=== PATIENT | male | born 1935 | race Caucasian/White ===

== ENCOUNTER 2017-01-02 13:07 | Inpatient (IN) ==
[2017-01-02 13:55] LABS: Basophils % 0.5 %; Eosinophils # 0.1 K/mcL (0.0-0.6); Eosinophils % 1.3 %; Hematocrit 44.8 % (37.5-50.1); Hemoglobin 14.9 g/dL (12.9-16.9); Immature Granulocytes % 0.4 % (0-4); Lymphocytes # 2.1 K/mcL (0.6-4.6); Lymphocytes % 25.2 %; Mean Corpuscular HGB Conc 33.3 g/dL (31.6-35.5); Mean Corpuscular Hemoglobin 28.7 pg (28.0-33.3); Mean Corpuscular Volume 86.3 fL (83.0-100.0); Mean Platelet Volume 10.7 fL (9.4-12.4); Monocytes # 0.8 K/mcL (0.0-1.3); Monocytes % 9.3 %; Neutrophils # 5.2 K/mcL (1.6-8.9); Platelet Count 306 K/mcL (140-400); Red Blood Count 5.19 M/mcL (4.19-5.50); Red Cell Distribution Width 14.2 % (11.5-14.5); Segmented Neutrophils % 63.3 %
[2017-01-02 14:00] LABS: INR 1.1; Prothrombin Time 11.4 Seconds (9.4-12.1)
[2017-01-02 14:02] LABS: Activated Partial Thrombo Time 36.4 Seconds (26.0-36.0)
[2017-01-02 14:07] LABS: BUN/Creatinine Ratio 17 (6-26); Blood Urea Nitrogen 13 mg/dL (8-26); Carbon Dioxide 23 mEq/L (19-29); Chloride 104 mEq/L (98-109); Glucose 130 mg/dL (70-99); Osmolality,Calculated 290 (280-300); Potassium 3.5 mEq/L (3.5-4.5); Sodium 139 mEq/L (136-145); eGFR For African Americans > 60 (> 60); eGFR For Non-African Americans > 60 (> 60)
--- NOTE | 2017-01-02 14:10 | Emergency Department Note ---
Disposition Clinical Impression: Syncope Disposition: Admitted As Inpatient Condition: Good General Adult HPI - General Chief complaint: ED Syncope Stated complaint: syncope, a-fib Time Seen by Provider: 01/02/17 13:37 Source: patient, family Limitations: no limitations Nursing Notes Reviewed: Yes Vital Signs Reviewed: Yes - History of Present Illness Pain Scale: 0 - Related Data Home Medications Medication Instructions Recorded Confirmed Amlodipine Besylate 10 mg PO DAILY 01/02/17 01/02/17 Aspirin Enteric Coated [Aspirin EC] 81 mg PO DAILY 01/02/17 01/02/17 Esomeprazole Magnesium [Nexium] 20 mg PO DAILY 01/02/17 01/02/17 Furosemide [Lasix] 20 mg PO 2XW 01/02/17 01/02/17 Gabapentin [Neurontin] 600 mg PO HS 01/02/17 01/02/17 Gemfibrozil [Lopid] 600 mg PO DAILY 01/02/17 01/02/17 Isosorbide MONOnitrate (24 HR) 30 mg PO DAILY 01/02/17 01/02/17 [Imdur] Metoprolol [Lopressor] 12.5 - 25 mg PO BID 01/02/17 01/02/17 Allergies Allergy/AdvReac Type Severity Reaction Status Date / Time No Known Allergies Allergy Unverified 09/28/15 10:08 Past Medical History - Past Medical History Medical history: Reports: cancer, CVA, hypertension, other Psychiatric history: Reports: no psych history - Social History Smoking Status: Never smoker Smokeless Tobacco Status: No Alcohol use: Reports: none Drug use: Reports: none Physical Exam - General Limitations: no limitations General appearance: alert, in no apparent distress Course Vital Signs Temperature 97.4 F L 01/02/17 13:25 Pulse Rate 62 01/02/17 13:25 Respiratory Rate 18 01/02/17 13:25 Blood Pressure 181/87 01/02/17 13:25 O2 Sat by Pulse Oximetry 94 L 01/02/17 13:25 Temperature 97.4 F L 01/02/17 17:00 Pulse Rate 88 01/02/17 17:00 Respiratory Rate 16 01/02/17 17:00 Blood Pressure 168/90 01/02/17 17:00 O2 Sat by Pulse Oximetry 95 01/02/17 17:00 Oxygen Delivery Oxygen Delivery Room Air Medical Decision Making - MDM Narrative Medical decision making narrative: I examined this patient and my medical decision-making was reviewed with the [employer]ENDER/PA/Advanced Practice Nurse/Resident Physician. I agree with the documented findings, disposition and treatment plan as described except to the extent set forth below. I evaluated this patient with Dr. Lopez, agree with his evaluation and management plan, I supervised care the patient outstay. Patient's not been feeling well he has had no chest pain he said he had an AR in the past without many symptoms. He is worried about same. Was seen in outside hospital they did not admit him so he came here today. Repeated his labs look good we are and bring him in to the hospital with on syncope A. fib with history of same and rule out ACS. He is in agreement with this plan. As his family. Chest X-Ray 01/02/17 13:22 IMPRESSION: No acute cardiac or pulmonary disease. Moderate stable cardiomegaly. D/ / Gennaro Lawson MD / Gennaro Lawson MD Interpreting Provider: Gennaro Lawson MD - Lab Data Result diagrams: 01/02/17 13:46 01/02/17 13:46 Lab Results 01/02/17 01/02/17 01/02/17 Range/Units 13:46 13:46 13:46 WBC 8.2 (4.3-11.1) K/mcL RBC 5.19 (4.19-5.50) M/mcL Hgb 14.9 (12.9-16.9) g/dL Hct 44.8 (37.5-50.1) % MCV 86.3 (83.0-100.0) fL MCH 28.7 (28.0-33.3) pg MCHC 33.3 (31.6-35.5) g/dL RDW 14.2 (11.5-14.5) % Plt Count 306 (140-400) K/mcL MPV 10.7 (9.4-12.4) fL Immature Gran % 0.4 (0-4) % Seg Neutrophils % 63.3 % Lymphocytes % 25.2 % Monocytes % 9.3 % Eosinophils % 1.3 % Basophils % 0.5 % Neutrophils # 5.2 (1.6-8.9) K/mcL Lymphocytes # 2.1 (0.6-4.6) K/mcL Monocytes # 0.8 (0.0-1.3) K/mcL Eosinophils # 0.1 (0.0-0.6) K/mcL Basophils # 0.0 (0.0-0.2) K/mcL PT 11.4 (9.4-12.1) Seconds INR 1.1 APTT 36.4 H (26.0-36.0) Seconds Sodium 139 (136-145) mEq/L Potassium 3.5 (3.5-4.5) mEq/L Chloride 104 (98-109) mEq/L Carbon Dioxide 23 (19-29) mEq/L BUN 13 (8-26) mg/dL Creatinine 0.76 (0.72-1.25) mg/dL Est GFR ( Amer) > 60 (> 60) Est GFR (Non-Af Amer) > 60 (> 60) BUN/Creatinine Ratio 17 (6-26) Glucose 130 H (70-99) mg/dL Calculated Osmolality 290 (280-300) Calcium 10.0 (8.6-10.8) mg/dL Troponin I (0-0.03) ng/mL Urine Color (Yellow) Urine Clarity (Clear) Urine pH (5.0-8.0) pH Units Ur Specific [place] (1.010-1.025) Urine Protein (Neg-Trace) mg/dL Urine Glucose (UA) (Normal) mg/dL Urine Ketones (Negative) mg/dL Urine Blood (Negative) Urine Nitrite (Negative) Urine Bilirubin (Negative) Urine Urobilinogen (Normal) mg/dL Ur Leukocyte Esterase (Negative) 01/02/17 01/02/17 Range/Units 13:46 15:11 WBC (4.3-11.1) K/mcL RBC (4.19-5.50) M/mcL Hgb (12.9-16.9) g/dL Hct (37.5-50.1) % MCV (83.0-100.0) fL MCH (28.0-33.3) pg MCHC (31.6-35.5) g/dL RDW (11.5-14.5) % Plt Count (140-400) K/mcL MPV (9.4-12.4) fL Immature Gran % (0-4) % Seg Neutrophils % % Lymphocytes % % Monocytes % % Eosinophils % % Basophils % % Neutrophils # (1.6-8.9) K/mcL Lymphocytes # (0.6-4.6) K/mcL Monocytes # (0.0-1.3) K/mcL Eosinophils # (0.0-0.6) K/mcL Basophils # (0.0-0.2) K/mcL PT (9.4-12.1) Seconds INR APTT (26.0-36.0) Seconds Sodium (136-145) mEq/L Potassium (3.5-4.5) mEq/L Chloride (98-109) mEq/L Carbon Dioxide (19-29) mEq/L BUN (8-26) mg/dL Creatinine (0.72-1.25) mg/dL Est GFR ( Amer) (> 60) Est GFR (Non-Af Amer) (> 60) BUN/Creatinine Ratio (6-26) Glucose (70-99) mg/dL Calculated Osmolality (280-300) Calcium (8.6-10.8) mg/dL Troponin I 0.01 (0-0.03) ng/mL Urine Color Yellow (Yellow) Urine Clarity Clear (Clear) Urine pH 7.0 (5.0-8.0) pH Units Ur Specific [place] 1.010 (1.010-1.025) Urine Protein Negative (Neg-Trace) mg/dL Urine Glucose (UA) Normal (Normal) mg/dL Urine Ketones Negative (Negative) mg/dL Urine Blood Negative (Negative) Urine Nitrite Negative (Negative) Urine Bilirubin Negative (Negative) Urine Urobilinogen Normal (Normal) mg/dL Ur Leukocyte Esterase Negative (Negative)
--- NOTE | 2017-01-02 14:21 | Emergency Department Note ---
Disposition Clinical Impression: Syncope Qualifiers: Syncope type: unspecified Qualified Code(s): R55 - Syncope and collapse Disposition: Admitted As Inpatient Condition: Good Syncope HPI - General Chief Complaint: ED Syncope Stated Complaint: syncope, a-fib Time Seen by Provider: 01/02/17 13:37 Source: patient, family Limitations: no limitations Nursing Notes Reviewed: Yes Vital Signs Reviewed: Yes - History of Present Illness HPI Narrative: Patient is here for evaluation of lightheadedness and weakness. Patient states symptoms started several months ago but have been getting progressively worse and more severe and frequent in nature. Patient describes a lightheadedness with blurring vision and feeling faint that causes him to sit down or lie on the floor with partial resolution of symptoms. Patient has had multiple episodes over the last week and was encouraged by his PCP and family to seek care. 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 Patient states several years ago he was found to have a problem with one of his stents but was unable to be intervened on. Medical management up until this point. Previous MIs included generalized fatigue and dizziness without chest pain or pressure. Patient does not exactly remember symptoms to correlate with today. - Related Data Home Medications Medication Instructions Recorded Confirmed Amlodipine Besylate 10 mg PO DAILY 01/02/17 01/02/17 Aspirin Enteric Coated [Aspirin EC] 81 mg PO DAILY 01/02/17 01/02/17 Esomeprazole Magnesium [Nexium] 20 mg PO DAILY 01/02/17 01/02/17 Furosemide [Lasix] 20 mg PO 2XW 01/02/17 01/02/17 Gabapentin [Neurontin] 600 mg PO HS 01/02/17 01/02/17 Gemfibrozil [Lopid] 600 mg PO DAILY 01/02/17 01/02/17 Isosorbide MONOnitrate (24 HR) 30 mg PO DAILY 01/02/17 01/02/17 [Imdur] Metoprolol [Lopressor] 12.5 - 25 mg PO BID 01/02/17 01/02/17 Allergies Allergy/AdvReac Type Severity Reaction Status Date / Time No Known Allergies Allergy Unverified 09/28/15 10:08 Constitutional: Denies: fever, chills Cardiovascular: Reports: syncope. Denies: chest pain, palpitations, dyspnea on exertion Respiratory: Denies: cough, dyspnea Gastrointestinal: Denies: abdominal pain Musculoskeletal: Denies: back pain Neurological: Denies: headache Endocrine: Denies: fatigue Past Medical History - Past Medical History Medical history: Reports: cancer, CVA, hypertension, other Psychiatric history: Reports: no psych history - Social History Smoking Status: Never smoker Smokeless Tobacco Status: No Alcohol use: Reports: none Drug use: Reports: none Physical Exam - General Limitations: no limitations General appearance: alert, in no apparent distress - Head Head exam: atraumatic, normocephalic - Eye Eye exam: Present: normal appearance - ENT ENT exam: normal exam, normal oropharynx - Neck Neck exam: Present: normal inspection, full ROM. Absent: tenderness - Chest Chest inspection: Present: normal inspection, symmetric chest wall rise - Respiratory Respiratory exam: Present: normal lung sounds bilaterally. Absent: respiratory distress, wheezes - Cardiovascular Cardiovascular exam: Present: regular rate, normal rhythm - Abdominal Exam Abdominal exam: Present: soft, Non-Tender - Extremities Exam Extremities exam: Present: normal inspection. Absent: tenderness - Back Exam Back exam: Present: normal inspection. Absent: CVA tenderness (R), CVA tenderness (L) - Neurological Exam Neurological exam: Present: alert, oriented X3, CN II-XII intact. Absent: motor sensory deficit - Skin Skin exam: Present: warm, dry Course - Reevaluation(s) Reevaluation #1: Due to the patient's repeated syncope history and unsafe being a home. Patient has already fractured an ankle due to his syncope and is supposed to be wearing a boot on the right ankle. Patient has known coronary lesion with previous IA symptoms consistent with presyncope and fatigue. Patient will need further cardiac evaluation as well as evaluation of syncope - Consultations Consultation #1: Discussed with Dr. Patterson. Pt accepted. Naseem Meyer requesting head CT prior to going to the floor. CT ordered but the patient was taken to the floor prior to completion. Pt with no neurodeficits or headache. Prior hemmorhagic stroke was when on Xeralto. Vital Signs Temperature 97.4 F L 01/02/17 13:25 Pulse Rate 62 01/02/17 13:25 Respiratory Rate 18 01/02/17 13:25 Blood Pressure 181/87 01/02/17 13:25 O2 Sat by Pulse Oximetry 94 L 01/02/17 13:25 Temperature 97.4 F L 01/02/17 13:25 Pulse Rate 69 01/02/17 15:37 Respiratory Rate 15 01/02/17 16:31 Blood Pressure 163/93 01/02/17 16:31 O2 Sat by Pulse Oximetry 97 01/02/17 15:37 Oxygen Delivery Oxygen Delivery Room Air Syncope - Medical Records Medical records reviewed: Yes I reviewed the patient's medical records. - Lab Data Lab results reviewed: Yes I reviewed the patient's lab results. Result diagrams: 01/02/17 13:46 01/02/17 13:46 Lab Results 01/02/17 01/02/17 01/02/17 Range/Units 13:46 13:46 13:46 WBC 8.2 (4.3-11.1) K/mcL RBC 5.19 (4.19-5.50) M/mcL Hgb 14.9 (12.9-16.9) g/dL Hct 44.8 (37.5-50.1) % MCV 86.3 (83.0-100.0) fL MCH 28.7 (28.0-33.3) pg MCHC 33.3 (31.6-35.5) g/dL RDW 14.2 (11.5-14.5) % Plt Count 306 (140-400) K/mcL MPV 10.7 (9.4-12.4) fL Immature Gran % 0.4 (0-4) % Seg Neutrophils % 63.3 % Lymphocytes % 25.2 % Monocytes % 9.3 % Eosinophils % 1.3 % Basophils % 0.5 % Neutrophils # 5.2 (1.6-8.9) K/mcL Lymphocytes # 2.1 (0.6-4.6) K/mcL Monocytes # 0.8 (0.0-1.3) K/mcL Eosinophils # 0.1 (0.0-0.6) K/mcL Basophils # 0.0 (0.0-0.2) K/mcL PT 11.4 (9.4-12.1) Seconds INR 1.1 APTT 36.4 H (26.0-36.0) Seconds Sodium 139 (136-145) mEq/L Potassium 3.5 (3.5-4.5) mEq/L Chloride 104 (98-109) mEq/L Carbon Dioxide 23 (19-29) mEq/L BUN 13 (8-26) mg/dL Creatinine 0.76 (0.72-1.25) mg/dL Est GFR ( Amer) > 60 (> 60) Est GFR (Non-Af Amer) > 60 (> 60) BUN/Creatinine Ratio 17 (6-26) Glucose 130 H (70-99) mg/dL Calculated Osmolality 290 (280-300) Calcium 10.0 (8.6-10.8) mg/dL Troponin I (0-0.03) ng/mL Urine Color (Yellow) Urine Clarity (Clear) Urine pH (5.0-8.0) pH Units Ur Specific [place] (1.010-1.025) Urine Protein (Neg-Trace) mg/dL Urine Glucose (UA) (Normal) mg/dL Urine Ketones (Negative) mg/dL Urine Blood (Negative) Urine Nitrite (Negative) Urine Bilirubin (Negative) Urine Urobilinogen (Normal) mg/dL Ur Leukocyte Esterase (Negative) 01/02/17 01/02/17 Range/Units 13:46 15:11 WBC (4.3-11.1) K/mcL RBC (4.19-5.50) M/mcL Hgb (12.9-16.9) g/dL Hct (37.5-50.1) % MCV (83.0-100.0) fL MCH (28.0-33.3) pg MCHC (31.6-35.5) g/dL RDW (11.5-14.5) % Plt Count (140-400) K/mcL MPV (9.4-12.4) fL Immature Gran % (0-4) % Seg Neutrophils % % Lymphocytes % % Monocytes % % Eosinophils % % Basophils % % Neutrophils # (1.6-8.9) K/mcL Lymphocytes # (0.6-4.6) K/mcL Monocytes # (0.0-1.3) K/mcL Eosinophils # (0.0-0.6) K/mcL Basophils # (0.0-0.2) K/mcL PT (9.4-12.1) Seconds INR APTT (26.0-36.0) Seconds Sodium (136-145) mEq/L Potassium (3.5-4.5) mEq/L Chloride (98-109) mEq/L Carbon Dioxide (19-29) mEq/L BUN (8-26) mg/dL Creatinine (0.72-1.25) mg/dL Est GFR ( Amer) (> 60) Est GFR (Non-Af Amer) (> 60) BUN/Creatinine Ratio (6-26) Glucose (70-99) mg/dL Calculated Osmolality (280-300) Calcium (8.6-10.8) mg/dL Troponin I 0.01 (0-0.03) ng/mL Urine Color Yellow (Yellow) Urine Clarity Clear (Clear) Urine pH 7.0 (5.0-8.0) pH Units Ur Specific [place] 1.010 (1.010-1.025) Urine Protein Negative (Neg-Trace) mg/dL Urine Glucose (UA) Normal (Normal) mg/dL Urine Ketones Negative (Negative) mg/dL Urine Blood Negative (Negative) Urine Nitrite Negative (Negative) Urine Bilirubin Negative (Negative) Urine Urobilinogen Normal (Normal) mg/dL Ur Leukocyte Esterase Negative (Negative) - Radiology Data Radiology results reviewed: Yes I reviewed the patient's radiology results. - EKG Data EKG attestation: Yes I reviewed and interpreted this EKG. EKG results narrative: EKG shows atrial fibrillation with moderate ST depression in the lateral leads. Ventricular rate of 74 bpm. QRS 78. QTC 435. EKG relatively unchanged from previous of 05/10/14.
[2017-01-02 16:14] LABS: Bilirubin,Urine Negative (Negative); Blood,Urine Negative (Negative); Clarity,Urine Clear (Clear); Color,Urine Yellow (Yellow); Glucose,Urine (UA) Normal (Normal); Ketones,Urine Negative (Negative); Leukocyte Esterase,Urine Negative (Negative); Nitrite,Urine Negative (Negative); Protein,Urine Negative (Neg-Trace); Urobilinogen,Urine Normal (Normal)
[2017-01-02] MEDS ORDERED: Naloxone 0.4 MG/ML INJ IVP PRN (16:30)
[2017-01-02] MEDS ORDERED: Acetaminophen 325 MG TABLET PO PRN (16:30)
--- NOTE | 2017-01-02 16:49 | Internal Med History&Physical ---
Date of Encounter: 01/02/17 Time of Encounter: 16:40 Assessment and Plan (1) Syncope Current visit: Yes Status: Acute Patient reporting multiple episodes of pre-syncope with sudden onset dizziness, lightheadedness, and nausea and vomiting. Patient without any focal neural deficits, equal strength bilaterally, cranial nerves intact. Differential includes orthostatic hypotension, arrhythmia, vertigo, less concern for CVA or [place]. 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 Patient takes 20mg of lasix twice a week. Qualifiers: Hypertension type: essential hypertension Qualified Code(s): I10 - Essential (primary) hypertension (3) Atrial fibrillation Current visit: Yes Status: Chronic Patient with Atrial fibrillation, rate controlled with metoprolol. 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 Continue home dose of metoprolol and aspirin. Qualifiers: Atrial fibrillation type: chronic Qualified Code(s): I48.2 - Chronic atrial fibrillation (4) DVT prophylaxis Current visit: Yes Status: Acute Ambulate with assistance anti-embolic stockings Lovenox 40mg SQ daily Internal Medicine - H&P: HPI Chief complaint: syncope Admitted From: Emergency Dept Plans for Post Hospital Care: Home History of present illness: Mr. Garcia is a 81 year old male with hypertension, coronary artery disease, prostate cancer, occasional atrial fibrillation, hemorrhagic CVA with full recovery, who presented to the emergency department today with reports of multiple episodes of presyncope. Patient describes the episodes as sudden onset of dizziness with darkening of his vision field, he loses his balance, feels lightheaded, like he is going to faint, gets nauseous and at times vomits. He reports he has had several of these episodes over the last month, and they are increasing in frequency. He reports he was in [facility] ED on Thursday for similar episode and was sent home. He reports during these episodes he feels like his heart is racing. He reports after each episode he experiences weakness. Denies chest pain, or increased shortness of breath. He denies any recent illness, fever, chills, sweats, body aches, abdominal pain, diarrhea. Evaluation in the emergency department included EKG which showed atrial fibrillation with moderate ST depression in lateral leads unchanged from previous EKG in May 2014. Chest x-ray revealed no acute cardiopulmonary disease, and moderate stable cardiomegaly. White blood cell count was normal at 8.2. Troponin was normal at 0.01. Exam, patient is alert and oriented, in no acute distress. Lungs are clear bilaterally to auscultation, heart has irregular rhythm with controlled rate. Cranial nerves are intact, he has equal strength bilaterally. When asked to sit up, patient experienced a brief dizzy episode and it was noted that his heart rate increased into the low 100s on the monitor. Past Med Surg Social Fam HX - Past Medical History Medical history: atrial fibrillation, cancer (prostate cancer), coronary artery disease, CVA (hemorrhagic with no residual), hypertension, other Psychiatric history: no psych history - Past Surgical History Surgical History: angioplasty/stent, herniorrhaphy - Social History Smoking Status: Never smoker Smokeless Tobacco Status: No Alcohol use: none Drug use: none - Family History Father Living Status: Cause of : CHF Mother Living Status: Cause of : Leukemia Internal Medicine - H&P: Meds Amlodipine Besylate 10 mg PO DAILY 01/02/17 [History] Aspirin Enteric Coated [Aspirin EC] 81 mg PO DAILY 01/02/17 [History] Esomeprazole Magnesium [Nexium] 20 mg PO DAILY 01/02/17 [History] Furosemide [Lasix] 20 mg PO 2XW 01/02/17 [History] Gabapentin [Neurontin] 600 mg PO HS 01/02/17 [History] Gemfibrozil [Lopid] 600 mg PO DAILY 01/02/17 [History] Isosorbide MONOnitrate (24 HR) [Imdur] 30 mg PO DAILY 01/02/17 [History] Metoprolol [Lopressor] 12.5 - 25 mg PO BID 01/02/17 [History] Allergies No Known Allergies Allergy (Unverified 09/28/15 10:08) All Systems PM: A 10-system review of systems was performed and is negative for pertinent findings except as documented above in the HPI. - Constitutional Constitutional: no chills, no fever(s), no night sweats - EENT Eyes: no change in vision, no discharge, no pain, no photophobia Ears: no ear discharge, no ear pain, no tinnitus Nose, mouth and throat: no dysphagia, no nasal discharge, no neck pain, no sore throat - Cardiovascular Cardiovascular ROS IM: lightheadedness, palpitations, syncope, no chest pain, no diaphoresis, no dyspnea - Respiratory Respiratory: no cough, no dyspnea, no wheezing, no excessive phlegm production - Gastrointestinal Gastrointestinal: no abdominal pain, no diarrhea, no hematemesis, no hematochezia, no melena, no nausea, no vomiting - Musculoskeletal Musculoskeletal ROS IM: no numbness, no tingling - Integumentary Integumentary IM: no rash, no unusual bruising - Neurological Neurological ROS: weakness, no confusion, no convulsions, no focal weakness, no numbness, no tingling, no tremor(s) - Hematologic/Lymphatic Hematologic/Lymphatic: no easy bruising - Constitutional Vitals: Temp Pulse Resp BP Pulse Ox 97.4 F L 69 15 163/93 97 01/02/17 13:25 01/02/17 15:37 01/02/17 16:31 01/02/17 16:31 01/02/17 15:37 General appearance: Present: A&O X 3, no acute distress - Head Head exam: Present: atraumatic, normocephalic - Eye Eye exam: Present: PERRL, conjuntiva pink, sclera anicteric Pupils: Present: PERRL - Neck Neck exam general surgery: Present: supple, trachea midline. Absent: lymphadenopathy - Respiratory Respiratory exam: Present: CTAB. Absent: accessory muscle use, rales, rhonchi, wheezes - Cardiovascular Cardiovascular exam: Present: irregular rhythm, +S1, +S2. Absent: diastolic murmur, gallop, rubs, systolic murmur - GI/Abdominal GI/Abdominal exam: Present: normal bowel sounds, soft, no peritoneal signs. Absent: distended, tenderness - Extremities Exam Extremities exam: Present: pedal edema (RLE swelling), warm, radial pulses palpable and symetrical. Absent: calf tenderness, cyanotic - Neurological Exam Neurological exam: Present: CN II-XII intact, oriented X3, no focal deficits, strengths equal and symetr throughout. Absent: pronater drift, facial droop, speech deficit - Skin Skin exam: Present: dry, intact Internal Med - H&P Results - Labs CBC & Chem 7: 01/02/17 13:46 01/02/17 13:46 Labs: All Lab Results (24 Hours) 01/02/17 01/02/17 01/02/17 Range/Units 13:46 13:46 13:46 WBC 8.2 (4.3-11.1) K/mcL RBC 5.19 (4.19-5.50) M/mcL Hgb 14.9 (12.9-16.9) g/dL Hct 44.8 (37.5-50.1) % MCV 86.3 (83.0-100.0) fL MCH 28.7 (28.0-33.3) pg MCHC 33.3 (31.6-35.5) g/dL RDW 14.2 (11.5-14.5) % Plt Count 306 (140-400) K/mcL MPV 10.7 (9.4-12.4) fL Immature Gran % 0.4 (0-4) % Seg Neutrophils % 63.3 % Lymphocytes % 25.2 % Monocytes % 9.3 % Eosinophils % 1.3 % Basophils % 0.5 % Neutrophils # 5.2 (1.6-8.9) K/mcL Lymphocytes # 2.1 (0.6-4.6) K/mcL Monocytes # 0.8 (0.0-1.3) K/mcL Eosinophils # 0.1 (0.0-0.6) K/mcL Basophils # 0.0 (0.0-0.2) K/mcL PT 11.4 (9.4-12.1) Seconds INR 1.1 APTT 36.4 H (26.0-36.0) Seconds Sodium 139 (136-145) mEq/L Potassium 3.5 (3.5-4.5) mEq/L Chloride 104 (98-109) mEq/L Carbon Dioxide 23 (19-29) mEq/L BUN 13 (8-26) mg/dL Creatinine 0.76 (0.72-1.25) mg/dL Est GFR ( Amer) > 60 (> 60) Est GFR (Non-Af Amer) > 60 (> 60) BUN/Creatinine Ratio 17 (6-26) Glucose 130 H (70-99) mg/dL Calculated Osmolality 290 (280-300) Calcium 10.0 (8.6-10.8) mg/dL Troponin I (0-0.03) ng/mL Urine Color (Yellow) Urine Clarity (Clear) Urine pH (5.0-8.0) pH Units Ur Specific [place] (1.010-1.025) Urine Protein (Neg-Trace) mg/dL Urine Glucose (UA) (Normal) mg/dL Urine Ketones (Negative) mg/dL Urine Blood (Negative) Urine Nitrite (Negative) Urine Bilirubin (Negative) Urine Urobilinogen (Normal) mg/dL Ur Leukocyte Esterase (Negative) 01/02/17 01/02/17 Range/Units 13:46 15:11 WBC (4.3-11.1) K/mcL RBC (4.19-5.50) M/mcL Hgb (12.9-16.9) g/dL Hct (37.5-50.1) % MCV (83.0-100.0) fL MCH (28.0-33.3) pg MCHC (31.6-35.5) g/dL RDW (11.5-14.5) % Plt Count (140-400) K/mcL MPV (9.4-12.4) fL Immature Gran % (0-4) % Seg Neutrophils % % Lymphocytes % % Monocytes % % Eosinophils % % Basophils % % Neutrophils # (1.6-8.9) K/mcL Lymphocytes # (0.6-4.6) K/mcL Monocytes # (0.0-1.3) K/mcL Eosinophils # (0.0-0.6) K/mcL Basophils # (0.0-0.2) K/mcL PT (9.4-12.1) Seconds INR APTT (26.0-36.0) Seconds Sodium (136-145) mEq/L Potassium (3.5-4.5) mEq/L Chloride (98-109) mEq/L Carbon Dioxide (19-29) mEq/L BUN (8-26) mg/dL Creatinine (0.72-1.25) mg/dL Est GFR ( Amer) (> 60) Est GFR (Non-Af Amer) (> 60) BUN/Creatinine Ratio (6-26) Glucose (70-99) mg/dL Calculated Osmolality (280-300) Calcium (8.6-10.8) mg/dL Troponin I 0.01 (0-0.03) ng/mL Urine Color Yellow (Yellow) Urine Clarity Clear (Clear) Urine pH 7.0 (5.0-8.0) pH Units Ur Specific [place] 1.010 (1.010-1.025) Urine Protein Negative (Neg-Trace) mg/dL Urine Glucose (UA) Normal (Normal) mg/dL Urine Ketones Negative (Negative) mg/dL Urine Blood Negative (Negative) Urine Nitrite Negative (Negative) Urine Bilirubin Negative (Negative) Urine Urobilinogen Normal (Normal) mg/dL Ur Leukocyte Esterase Negative (Negative)
[2017-01-02] MEDS: Gabapentin 300 MG CAPSULE PO SCH (21:38)
[2017-01-03] MEDS: Ondansetron 4 MG/2 ML VIAL IVP PRN (01:05)
[2017-01-03 03:37] LABS: Basophils % 0.7 %; Eosinophils # 0.1 K/mcL (0.0-0.6); Hematocrit 40.5 % (37.5-50.1); Hemoglobin 13.4 g/dL (12.9-16.9); Immature Granulocytes % 0.2 % (0-4); Lymphocytes # 1.3 K/mcL (0.6-4.6); Lymphocytes % 23.2 %; Mean Corpuscular HGB Conc 33.1 g/dL (31.6-35.5); Mean Corpuscular Hemoglobin 28.7 pg (28.0-33.3); Mean Corpuscular Volume 86.7 fL (83.0-100.0); Mean Platelet Volume 11.1 fL (9.4-12.4); Monocytes # 0.6 K/mcL (0.0-1.3); Monocytes % 10.5 %; Neutrophils # 3.5 K/mcL (1.6-8.9); Platelet Count 266 K/mcL (140-400); Red Blood Count 4.67 M/mcL (4.19-5.50); Red Cell Distribution Width 14.2 % (11.5-14.5); Segmented Neutrophils % 63.4 %
[2017-01-03 03:47] LABS: BUN/Creatinine Ratio 18 (6-26); Blood Urea Nitrogen 13 mg/dL (8-26); Carbon Dioxide 20 mEq/L (19-29); Chloride 109 mEq/L (98-109); Potassium 3.8 mEq/L (3.5-4.5); Sodium 139 mEq/L (136-145)
[2017-01-03 03:48] LABS: Calcium 8.7 mg/dL (8.6-10.8); Glucose 131 mg/dL (70-99); Osmolality,Calculated 290 (280-300); eGFR For African Americans > 60 (> 60); eGFR For Non-African Americans > 60 (> 60)
--- NOTE | 2017-01-03 10:21 | ECHO - Doppler Report ---
Echocardiogram Name: Nas Garcia Date of Study: 01/02/2017 Date: 1935 Ht: 68.0 in Medical Record#: [id number] Age: 81 Wt: 202.0 lb Gender: Male BSA: 2.05 Order #: [id number] Location: [facility] Room #: [id number] Reading Physician: Gil Milner MD, [facility] [employer] Operator: Nabila Coreas RDCS Ordering Physician: Chelle Meyer CNP Primary Physician: Una Pascal CNP Indications: Syncope Impressions: LVEF 55-60%. No pulmonary hypertension. No significant valvular dysfunction. Left Ventricular Wall Motion: Rest Echo Findings All wall segments showed normal motion. Findings: Right Ventricle * Normal right ventricular structure and function. Mitral Valve * Normal mitral valve structure and function. Interatrial Septum * No evidence of PFO by color Doppler. Aorta * Normally sized aortic root. Pericardium * The pericardium appears normal. Pulmonic Valve * Pulmonic valve not well visualized. * No pulmonic stenosis. * Trace pulmonic regurgitation. Tricuspid Valve * No tricuspid stenosis. * Trace tricuspid regurgitation. * Estimated RVSP is 14 mmHg. * Estimated RA pressure is 3-5 mmHg. * No pulmonary hypertension. Aortic Valve * No aortic regurgitation. * No aortic stenosis. * Aortic valve not well visualized. * Mildly calcified aortic valve leaflets. ECG Findings * Atrial fibrillation. Left Ventricle * Indeterminate diastolic function. * LVEF 55-60%. Study Quality * Technically sub-optimal due to body habitus. IVC * Normal IVC dimensions and inspiratory collapse. Left Atrium * Mildly dilated left atrium. Right Atrium * Right atrium is not well visualized. History Hypertension Family History of CAD History of CAD/PTCA 10/04/2013 a Previous Echo was performed. Measurements: BP: 168/ 90 2D Normal Values RVIDd: 3.47 cm <2.7 cm IVSd: .79 cm 0.6 - 1.0 cm LVIDd: 5.11 cm 3.7 - 5.6 cm LVPWd: .97 cm 0.6 - 1.1 cm LVIDs: 2.77 cm 1.5 - 3.6 cm AO: 2.80 cm < 4.0 cm LA: 4.10 cm 2.0 - 4.0cm %FS: 45.80 cm >25 % LA volume: 82 Mitral Valve Peak E:1.07 m/sec Peak E' Lat James:11.3 cm/s Peak E' Med James:9.45 cm/s E/E' Lat Ratio:9.5 E/E' Med Ratio:11.3 Tricuspid Valve TV Regurg Peak Grad: 14.00mmHg TV Regurg Peak James: 1.85m/sec Updated by Gil Milner MD, [facility] on 01/03/2017 10:16:53 AM electronically signed on 01/03/2017 10:18:34 AM with status of Final Wall Motion Alan: 1=Normal, 2=Hypokinesis, 3=Akinesis, 4=Dyskinesis, 5=Aneurysmal, 6=Hyperkinetic, X=Not Visualized (Blank)=Missing
[2017-01-03] MEDS: amLODIPine 5 MG TABLET PO SCH (10:42)
[2017-01-03] MEDS: Isosorbide MONOnitrate (24 HR) 30 MG TAB.ER.24H PO SCH (10:42)
[2017-01-03] MEDS: Aspirin Enteric Coated 81 MG Tablet PO SCH (10:42)
--- NOTE | 2017-01-03 12:26 | Cardiology Consult Note ---
Date of Encounter: 01/03/17 Time of Encounter: 12:23 Assessment and Plan (1) Pre-syncope Current Visit: Yes Status: Acute Describes presyncopal symptoms. Denies loss of consciousness. TTE shows EF 55-60%. No significant valvular disease. No pulmonary hypertension. Carotid US pending. Telemetry review shows atrial fibrillation rate controlled and atrial fibrillation with slow ventricular response. Heart rate seen as low as 33 bpm during daytime and nighttime hours. Pauses seen up to 3.6 seconds. Patient may be having symptomatic bradycardia but this is unclear due to the patient being on higher dose of metoprolol then at home. He reports he takes 12.5mg metoprolol BID at home. Avoid AV alfred blockers. Hold metoprolol. He is hemodynamically stable at this time. Continue to monitor telemetry. (2) Symptomatic bradycardia Current Visit: Yes Status: Acute See plan above. HR seen as low as 33 bpm. Pause up to 3.6 seconds. Hold lopressor. (3) CAD (coronary artery disease) Current Visit: Yes Status: Acute History of remote PCI. He denies any chest pain. Troponins are negative. Continue aspirin and statin therapy. No beta jose guadalupe at this time secondary to bradycardia. Stress test in was negative for ischemia or infarct. Qualifiers: Coronary Disease-Associated Artery/Lesion type: [place] artery [place] vs. transplanted heart: [place] heart Associated angina: without angina Qualified Code(s): I25.10 - Atherosclerotic heart disease of [place] coronary artery without angina pectoris (4) Hypertension Current Visit: Yes Status: Acute Blood pressure stable. Qualifiers: Hypertension type: essential hypertension Qualified Code(s): I10 - Essential (primary) hypertension (5) Atrial fibrillation Current Visit: Yes Status: Chronic Patient with Atrial fibrillation rate controlled/ slow ventricular response. Hold metoprolol. 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 Qualifiers: Atrial fibrillation type: chronic Qualified Code(s): I48.2 - Chronic atrial fibrillation Discussion w patient/family: The assessment and plan as outlined above was discussed with the patient and/or family members who expressed understanding and agreement. All questions were answered. Thank you for involving us in the care of your patient. Please call with any questions. History of Present Illness Requesting physician: Segundo Garcia Consult reason: SYncope Chief complaint: Syncope History of present illness: Mr. Garcia is a 81 year old male with a history of CAD status post previous PCI , atrial fibrillation, CVA, hypertension who presents with increasing lightheadedness and dizziness. He reports symptoms started several months ago. Symptoms have progressively gotten worse. He reports having symptoms over an hour last Thursday. He also developed nausea and vomiting. He often has nausea with his lightheadedness. Symptoms usually occur while he is sitting in a chair and may increase if he turns his head too quickly. Cardiology is consulted for further evaluation. Past Med Surg Social Fam HX - Past Medical History Medical history: cancer, CVA, hypertension, other Psychiatric history: no psych history - Past Surgical History Surgical History: angioplasty/stent, herniorrhaphy - Social History Smoking Status: Never smoker Smokeless Tobacco Status: No Alcohol use: none Drug use: none - Family History Father Living Status: Cause of : CHF Hx Family Cardiac Disorders: Yes (HTN) Hx Family Respiratory Disorders: No Hx Family Cancer: No Hx Family GI Disorders: No Hx Family Genitourinary Disorders: No Hx Family Endocrine Disorder: No Hx Family Musculoskeletal Disorders: No Hx Family Neuromuscular Disorders: No Hx Family Neurologic Disorders: No Hx Family HEENT Disorders: No Hx Family Autoimmune Disorders: No Hx Family Reproductive Disorders: No Hx Family Psychosocial Disorders: No Hx Family Medical Disorders: No Mother Living Status: Cause of : Leukemia Hx Family Cardiac Disorders: No Hx Family Respiratory Disorders: No Hx Family Cancer: Yes (leukemia) Hx Family GI Disorders: No Hx Family Genitourinary Disorders: No Hx Family Endocrine Disorder: No Hx Family Musculoskeletal Disorders: No Hx Family Neuromuscular Disorders: No Hx Family Neurologic Disorders: No Hx Family HEENT Disorders: No Hx Family Autoimmune Disorders: No Hx Family Reproductive Disorders: No Hx Family Psychosocial Disorders: No Hx Family Medical Disorders: No Medications and Allergies Amlodipine Besylate 10 mg PO DAILY 01/02/17 [History] Aspirin Enteric Coated [Aspirin EC] 81 mg PO DAILY 01/02/17 [History] Esomeprazole Magnesium [Nexium] 20 mg PO DAILY 01/02/17 [History] Furosemide [Lasix] 20 mg PO 2XW 01/02/17 [History] Gabapentin [Neurontin] 600 mg PO HS 01/02/17 [History] Gemfibrozil [Lopid] 600 mg PO DAILY 01/02/17 [History] Isosorbide MONOnitrate (24 HR) [Imdur] 30 mg PO DAILY 01/02/17 [History] Metoprolol [Lopressor] 12.5 - 25 mg PO BID 01/02/17 [History] Allergies No Known Allergies Allergy (Unverified 09/28/15 10:08) All Systems Review: A 10-system review of systems was performed and is negative for pertinent findings except as documented above in the HPI. Physical Examination Vital Signs, Last 4 Hours Temp Pulse Resp BP Pulse Ox 01/03/17 11:37 97.7 F 64 16 146/71 96 General: Conversant, No Apparent Distress HEENT: Atraumatic, Normocephaly, Mucus Membranes Moist Neck: No JVD, Normal carotid pulses Cardiac: Other (Irregularly irregular) Lungs: Normal Breath Sounds, No Wheeze, Rales, Rhonchi Neuro: Alert and responsive, No focal deficits noted Abdomen: Soft, Non-Tender Skin: No rashes noted on visualized skin Musculoskeletal: No Chest Wall Tenderness Extremities: No Clubbing, No Cyanosis, No Edema, Normal Pulses Results 01/03/17 03:02 01/03/17 03:02 Lab Results 01/02/17 01/03/17 01/03/17 19:54 03:02 03:02 WBC 5.5 Hgb 13.4 D Hct 40.5 Plt Count 266 Sodium Potassium Chloride Carbon Dioxide BUN Creatinine Glucose Calcium Troponin I 0.01 0.01 01/03/17 03:02 WBC Hgb Hct Plt Count Sodium 139 Potassium 3.8 Chloride 109 Carbon Dioxide 20 BUN 13 Creatinine 0.71 L Glucose 131 H Calcium 8.7 Troponin I - Imaging and Cardiology Echo: report reviewed (EF 55-60%. No significant valvular disease) - EKG Interpretation EKG results cardiology: personally reviewed (Atrial fibrillation), other Consult Discharge Plan - Plan Referrals: Una Pascal, GENERAL OPHTHALMOLOGIST [Primary Care Provider] -
--- NOTE | 2017-01-03 18:41 | Internal Med Progress Note ---
Date of Encounter: 01/03/17 Time of Encounter: 12:00 - Assessment and plan (1) Pre-syncope Current Visit: Yes Status: Acute Assessment and plan: Had episode last evening. Nothing further. Will check MRI/MRA to r/o posterior circulation CVA and CTA of chest to R/O PE as he has been relatively immobile with R fibular fracture. Cardiology eval as patient feels it may be cardiac in nature. (2) Atrial fibrillation Current Visit: Yes Status: Chronic Assessment and plan: Cardiology eval. Qualifiers: Atrial fibrillation type: chronic Qualified Code(s): I48.2 - Chronic atrial fibrillation (3) CAD (coronary artery disease) Current Visit: Yes Status: Chronic Assessment and plan: Continue home meds. Qualifiers: Coronary Disease-Associated Artery/Lesion type: [place] artery [place] vs. transplanted heart: [place] heart Associated angina: without angina Qualified Code(s): I25.10 - Atherosclerotic heart disease of [place] coronary artery without angina pectoris (4) Hypertension Current Visit: Yes Status: Acute Assessment and plan: Monitoring Qualifiers: Hypertension type: essential hypertension Qualified Code(s): I10 - Essential (primary) hypertension - Subjective Interval history: Mr Garcia is currently in observation for presynocopal episodes. He is moderate risk at this time. Mr. Garcia is feeling OK but had an episode during the night which was similar to those at home. He awoke and became dizzy and nauseated. He was given Zofran and felt better. Currently he does not have any symptoms. - Constitutional Vitals: Temp Pulse Resp BP Pulse Ox 97.6 F 60 16 111/62 94 L 01/03/17 16:13 01/03/17 16:13 01/03/17 16:13 01/03/17 16:13 01/03/17 16:13 General appearance: Present: A&O X 3, pleasant, answers questions appropriately - Head Head exam: Present: normocephalic - Eye Eye exam: Present: conjuntiva pink - ENT ENT exam: Present: mucous membranes moist - Respiratory Respiratory exam: Present: decreased breath sounds, CTAB - Cardiovascular Cardiovascular exam: Present: irregular rhythm. Absent: tachycardia - GI/Abdominal GI/Abdominal exam: Present: soft. Absent: tenderness - Extremities Exam Extremities exam: Present: warm. Absent: pedal edema - Neurological Exam Neurological exam: Present: alert, oriented X3, no focal deficits - Psychiatric Psychiatric exam: Present: normal affect, normal mood - Skin Skin exam: Present: warm. Absent: rash Internal Medicine: Result - Labs CBC & Chem 7: 01/03/17 03:02 01/03/17 03:02 Labs: Short CBC 01/03/17 Range/Units 03:02 WBC 5.5 (4.3-11.1) K/mcL Hgb 13.4 D (12.9-16.9) g/dL Hct 40.5 (37.5-50.1) % Plt Count 266 (140-400) K/mcL Neutrophils # 3.5 (1.6-8.9) K/mcL BMP 01/03/17 03:02 Sodium 139 Potassium 3.8 Chloride 109 Carbon Dioxide 20 BUN 13 Creatinine 0.71 L Glucose 131 H Calcium 8.7 Cardiac Enzymes 01/02/17 01/03/17 Range/Units 19:54 03:02 Troponin I 0.01 0.01 (0-0.03) ng/mL - ABG Interpretation ABG results: PT/INR, D-dimer PT 11.4 Seconds (9.4-12.1) 01/02/17 13:46 - Impressions Impressions Head CT 01/02/17 16:50 IMPRESSION: No hemorrhage or mass Underlying atrophy with periventricular and scattered frontal parietal white matter disease, likely due to small-vessel ischemic change. Appearance is similar D/ / Valentin Pino MD / Valentin Pino MD Interpreting Provider: Valentin Pino MD Brain MRI 01/03/17 12:24 IMPRESSION: No acute intracranial abnormality. Small old lacunar infarct versus prominent perivascular space in the right basal ganglia. Mild parenchymal volume loss. Mild chronic microvascular disease. Unremarkable MRA of the head. D/ / Car Menjivar MD / Car Menjivar MD Interpreting Provider: Car Menjivar MD Head MRA 01/03/17 12:25 IMPRESSION: No acute intracranial abnormality. Small old lacunar infarct versus prominent perivascular space in the right basal ganglia. Mild parenchymal volume loss. Mild chronic microvascular disease. Unremarkable MRA of the head. D/ / Car Menjivar MD / Car Menjivar MD Interpreting Provider: Car Menjivar MD Chest CTA 01/03/17 12:26 IMPRESSION: 1. No evidence of pulmonary embolism or other acute abnormality in the chest. 2. Significant coronary artery atherosclerotic vascular calcifications. 3. Several scattered small bilateral pulmonary nodules the largest of which measures approximately 6 x 5 mm in the lingula. See recommendations below. Fleischner Society guidelines for follow-up and management of pulmonary nodules: Nodule size equals 4-6 mm In a low-risk patient, follow-up CT at 12 months; if unchanged, no further follow-up. In a high-risk patient, initial follow-up CT at 6-12 months then at 18-24 months if no change. Low risk patients include individuals with minimal or absent history of smoking and other known risk factors. High risk patients include individuals with a history of smoking or other known risk factors. Radiology 2005; [id number] D/ / Link Anglin MD / Link Anglin MD Interpreting Provider: Link Anglin MD Consult Discharge Plan - Plan Referrals: Una Pascal FRUIT FARMER [Primary Care Provider] -
[2017-01-03] MEDS: Gabapentin 300 MG CAPSULE PO SCH (21:33)
[2017-01-04] MEDS: Aspirin Enteric Coated 81 MG Tablet PO SCH (09:40)
[2017-01-04] MEDS: Isosorbide MONOnitrate (24 HR) 30 MG TAB.ER.24H PO SCH (09:41)
[2017-01-04] MEDS: amLODIPine 5 MG TABLET PO SCH (09:41)
[2017-01-04] MEDS: Ondansetron 4 MG/2 ML VIAL IVP PRN (11:33)
[2017-01-04] MEDS ORDERED: *HR* Promethazine 25 MG/ML VIAL IVP ONE (11:56)
--- NOTE | 2017-01-04 12:58 | Neurology - Consult Note ---
Date of Encounter: 01/04/17 Time of Encounter: 12:47 Assessment and Plan (1) Vestibular disorders Current Visit: Yes Status: Acute 81 year old man with Atrial fibrillation, HTN, CAD who developed acute onset of recurrent vertiginous feeling associated with significant autonomic symptoms, including nausea and vomiting, but no unilateral otological complaints. The symptoms are recurrent and episodic but last longer than what usually seen in patient with BPPV, although it can be argued that he may be just having a cluster attack of BPPV. Other possibilities would be vestibular neuronitis, labrynthitis. No previous similar history and no otological symptoms therefore Meniere syndrome is less likely but it can not be excluded. MRI of brain showed no stroke and MRA of brain showed no evidence of vertebral basilar stenosis so this is not of central etiology. Treatment include hydration, antiemetics, vestibular depressant such as Valium, and short course of Steroid therapy may also help. Eventually patient may need ENT evaluation in the form of VNG/hearing testing. Please continue medical and supportive care Qualifiers: Laterality: bilateral Qualified Code(s): H81.93 - Unspecified disorder of vestibular function, bilateral History of Present Illness Chief complaint: Dizziness HPI: Mr. Garcia is a 81 year old male with PMH significant for atrial fibrillation, currently not on anticoagulation therapy due to history of cerebral hemorrhage while on anticoagulation, HTN, CAD who presented to ER with acute onset of dizziness associated with nausea. Patient developed acute dizziness, on Thursday. Describes a room spinning sensation lasting somewhere around 45 minutes, really sick to his stomach. Went to ER at [facility] where he was given tow different medications. Then he developed another spells on Thursday when he was seen in PCP's office. He was brought to ER here at [place]. Completed MRI of brain and MRA of brain, showing no acute infarct. Patient had another spell this AM. With vertiginous feeling and really sick to his stomach. The dizziness can be aggravated by moving his head and he has to keep still. Denies hearing loss, tinnitus. Says that after his first episode on Thursday he was doing well in between. When not having a spell he was feeling fine. The spells however, can last more than 45 minutes. Past Med Surg Social Fam HX - Past Medical History Medical history: cancer, CVA, hypertension, other Psychiatric history: no psych history - Past Surgical History Surgical History: angioplasty/stent, herniorrhaphy - Social History Smoking Status: Never smoker Smokeless Tobacco Status: No Alcohol use: none Drug use: none - Family History Father Living Status: Cause of : CHF Hx Family Cardiac Disorders: Yes (HTN) Hx Family Respiratory Disorders: No Hx Family Cancer: No Hx Family GI Disorders: No Hx Family Genitourinary Disorders: No Hx Family Endocrine Disorder: No Hx Family Musculoskeletal Disorders: No Hx Family Neuromuscular Disorders: No Hx Family Neurologic Disorders: No Hx Family HEENT Disorders: No Hx Family Autoimmune Disorders: No Hx Family Reproductive Disorders: No Hx Family Psychosocial Disorders: No Hx Family Medical Disorders: No Mother Living Status: Cause of : Leukemia Hx Family Cardiac Disorders: No Hx Family Respiratory Disorders: No Hx Family Cancer: Yes (leukemia) Hx Family GI Disorders: No Hx Family Genitourinary Disorders: No Hx Family Endocrine Disorder: No Hx Family Musculoskeletal Disorders: No Hx Family Neuromuscular Disorders: No Hx Family Neurologic Disorders: No Hx Family HEENT Disorders: No Hx Family Autoimmune Disorders: No Hx Family Reproductive Disorders: No Hx Family Psychosocial Disorders: No Hx Family Medical Disorders: No Medications and Allergies Amlodipine Besylate 10 mg PO DAILY 01/02/17 [History] Aspirin Enteric Coated [Aspirin EC] 81 mg PO DAILY 01/02/17 [History] Esomeprazole Magnesium [Nexium] 20 mg PO DAILY 01/02/17 [History] Furosemide [Lasix] 20 mg PO 2XW 01/02/17 [History] Gabapentin [Neurontin] 600 mg PO HS 01/02/17 [History] Gemfibrozil [Lopid] 600 mg PO DAILY 01/02/17 [History] Isosorbide MONOnitrate (24 HR) [Imdur] 30 mg PO DAILY 01/02/17 [History] Metoprolol [Lopressor] 12.5 - 25 mg PO BID 01/02/17 [History] Allergies No Known Allergies Allergy (Unverified 09/28/15 10:08) All Systems: A 10-system review of systems was performed and is negative for pertinent findings except as documented above in the HPI. Physical Examination - Vital Signs Vital Signs: Initial Vital Signs Temp Pulse Resp BP Pulse Ox 97.4 F L 62 18 181/87 94 L 01/02/17 13:25 01/02/17 13:25 01/02/17 13:25 01/02/17 13:25 01/02/17 13:25 - Constitutional General appearance: acutely ill - Neurologic Sensorimotor examination: intact Detailed motor examination: grossly full strength in all extremities Motor examination - right side: 5/5: deltoids, biceps, triceps, wrist flexion, wrist extension, adjunct sociology professor, hip flexors, tibialis Anterior, quadriceps, toe extension (EHL), plantarflexion Motor examination - left side: 5/5: deltoids, biceps, triceps, wrist flexion, wrist extension, hip flexors, adjunct sociology professor, quadriceps, tibialis Anterior, toe extension (EHL), plantarflexion Detailed sensory examination: intact Posture: other (Patient tries to keep still especially the head position) Reflexes: Biceps: 1+, Triceps: 1+, Brachioradialis: 1+, Patella: 1+, Achilles: 1 + Mental Status Examination: awake, alert, oriented to person, oriented to place, oriented to time, follows commands appropriately, answers questions appropriately, no agnosia, no aphasia, no aproxia, lucid, opens eyes to voice, opens eyes to noxious stimulation, makes eye contact Cranial nerve examination: PERRL, EOMI (Bilateral non sustained horizontal nystagmus noted, no signficiant unilateral preference. ), visual quan intact, corneal reflexes brisk symmetrically, sensory to face intact, mastication intact , no facial asymmetry is present, no dysarthria, hearing is intact symmetrically , soft palate elevates bilaterally upon phonation, gag reflex intact, flexes SCM and trapezius muscles symmetrically with full power, tongue protrudes midline, no atrophy or facial fasiculations present Results - Laboratory Findings CBC and BMP: 01/03/17 03:02 01/03/17 03:02 Abnormal lab findings: Abnormal lab results APTT 36.4 Seconds (26.0-36.0) H 01/02/17 13:46 Creatinine 0.71 mg/dL (0.72-1.25) L 01/03/17 03:02 Glucose 131 mg/dL (70-99) H 01/03/17 03:02 Consult Discharge Plan - Plan Referrals: Una Pascal, DEXTRINE MIXER [Primary Care Provider] -
[2017-01-04] MEDS ORDERED: diazePAM 10 MG/2 ML SYRINGE IVP PRN ×2 (13:47→18:54)
[2017-01-04] MEDS ORDERED: methylPREDNISolone 125 MG/2 ML VIAL IVP SCH (14:00)
[2017-01-04] MEDS ORDERED: Naloxone 0.4 MG/ML INJ IVP PRN (14:33)
[2017-01-04] MEDS ORDERED: Acetaminophen 325 MG TABLET PO PRN (14:33)
[2017-01-04] MEDS ORDERED: Ondansetron 4 MG/2 ML VIAL IVP PRN (14:33)
--- NOTE | 2017-01-04 18:48 | Internal Med Progress Note ---
Date of Encounter: 01/04/17 Time of Encounter: 12:00 - Assessment and plan (1) Vestibular neuronitis Current Visit: Yes Status: Suspected Assessment and plan: Steroids, PRN antiemetics, valium and meclizine. PT consult for balance and further recommendations. Qualifiers: Laterality: bilateral Qualified Code(s): H81.23 - Vestibular neuronitis, bilateral (2) Pre-syncope Current Visit: Yes Status: Acute Assessment and plan: MRI/MRA and CTA of chest are negative for acute process. Most likely this is vestibular neuronitis. Neuro input appreciated. IV Steroids, antiemetics and meclizine ordered. PRN Valium as well. (3) Atrial fibrillation Current Visit: Yes Status: Chronic Assessment and plan: Cardiology eval. appreciated. Metoprolol on hold. Qualifiers: Atrial fibrillation type: chronic Qualified Code(s): I48.2 - Chronic atrial fibrillation (4) CAD (coronary artery disease) Current Visit: Yes Status: Chronic Assessment and plan: Continue home meds. Qualifiers: Coronary Disease-Associated Artery/Lesion type: [place] artery [place] vs. transplanted heart: [place] heart Associated angina: without angina Qualified Code(s): I25.10 - Atherosclerotic heart disease of [place] coronary artery without angina pectoris (5) Hypertension Current Visit: Yes Status: Acute Assessment and plan: Monitoring Qualifiers: Hypertension type: essential hypertension Qualified Code(s): I10 - Essential (primary) hypertension - Subjective Interval history: Mr Garcia is currently admitted for presynocopal episodes with slow atrial fibrillation and vertigo. He is moderate to high risk at this time due to potential for worsening cardiac and neurologic symptoms. Mr. Garcia had a severe episode of vertigo at this time. He is nauseous and dizzy. It is worse if he turns his head. He has not vomited but feels like it is going to happen. Zofran has not helped at this time. Pt transferred to [facility] [place]. Orthostatics are negative. He is beginning to feel somewhat better and not as dizzy or nauseous. Family at bedside and updated in detail. - Constitutional Vitals: Temp Pulse Resp BP Pulse Ox 97.5 F L 69 16 147/84 97 01/04/17 14:41 01/04/17 14:41 01/04/17 14:41 01/04/17 14:41 01/04/17 14:41 General appearance: Present: A&O X 3, severe distress - Head Head exam: Present: normocephalic - Eye Eye exam: Present: nystagmus, conjuntiva pink - ENT ENT exam: Present: mucous membranes moist - Respiratory Respiratory exam: Present: decreased breath sounds, CTAB - Cardiovascular Cardiovascular exam: Present: irregular rhythm. Absent: tachycardia - GI/Abdominal GI/Abdominal exam: Present: soft. Absent: tenderness - Extremities Exam Extremities exam: Present: full ROM, warm. Absent: pedal edema, tenderness - Neurological Exam Neurological exam: Present: alert, oriented X3 - Skin Skin exam: Present: warm. Absent: rash Internal Medicine: Result - Labs CBC & Chem 7: 01/03/17 03:02 01/03/17 03:02 - ABG Interpretation ABG results: PT/INR, D-dimer PT 11.4 Seconds (9.4-12.1) 01/02/17 13:46 Consult Discharge Plan - Plan Referrals: Una Pascal, HIDE GRADER [Primary Care Provider] -
[2017-01-04] MEDS ORDERED: Gabapentin 300 MG CAPSULE PO SCH (21:00)
[2017-01-04] MEDS: methylPREDNISolone 125 MG/2 ML VIAL IVP SCH (21:48)
[2017-01-05] MEDS: methylPREDNISolone 125 MG/2 ML VIAL IVP SCH ×2 (01:27→08:24)
[2017-01-05 06:02] LABS: Hematocrit 42.3 % (37.5-50.1); Mean Corpuscular HGB Conc 33.1 g/dL (31.6-35.5); Mean Corpuscular Hemoglobin 28.5 pg (28.0-33.3); Mean Platelet Volume 11.1 fL (9.4-12.4); Platelet Count 276 K/mcL (140-400); Red Blood Count 4.92 M/mcL (4.19-5.50); Red Cell Distribution Width 14.2 % (11.5-14.5)
[2017-01-05 06:22] LABS: Alanine Aminotransferase 16 Units/L (0-55); Albumin 3.4 g/dL (3.5-5.0); Albumin/Globulin Ratio 0.8 (1.1-2.2); Alkaline Phosphatase 74 Units/L (38-126); Aspartate Amino Transferase 16 Units/L (5-34); BUN/Creatinine Ratio 21 (6-26); Bilirubin,Total 0.5 mg/dL (0.2-1.2); Blood Urea Nitrogen 17 mg/dL (8-26); Calcium 9.1 mg/dL (8.6-10.8); Carbon Dioxide 20 mEq/L (19-29); Chloride 109 mEq/L (98-109); Globulin 4.2 g/dL (2.4-3.5); Glucose 161 mg/dL (70-99); Magnesium 1.8 mg/dL (1.6-2.6); Osmolality,Calculated 293 (280-300); Potassium 4.3 mEq/L (3.5-4.5); Sodium 139 mEq/L (136-145); Total Protein 7.6 g/dL (6.0-8.3); eGFR For African Americans > 60 (> 60); eGFR For Non-African Americans > 60 (> 60)
[2017-01-05] MEDS ORDERED: amLODIPine 5 MG TABLET PO SCH (09:00)
[2017-01-05] MEDS ORDERED: Aspirin Enteric Coated 81 MG Tablet PO SCH (09:00)
[2017-01-05] MEDS ORDERED: Isosorbide MONOnitrate (24 HR) 30 MG TAB.ER.24H PO SCH (09:00)
--- NOTE | 2017-01-05 09:41 | Carotid Imaging Report ---
Carotid Duplex Patient Name:Nas Garcia Order Number:[id number] Procedure Date:01/02/2017 Date:1935ge:81 yrs Gender:Male Rt.BP:168 / 90 mmHgHeart Rate: Location:[facility] Room #: 3B52 Labor Relations Teacher:Nabila Coreas, RDCS Referring MD:Chelle Meyer [employer] movie writer:Una Pascal, [employer] Reading MD:Blaise Castro MD , FACS Primary Indications:Syncope and collapse Risk Factors Yes/No Hypertension Yes Hx of CAD/PTCA Yes Impressions: Findings: Bilateral carotid systems have nonstenotic plaque. Recommendations: Preliminary noted in patient EMR. Test completed on 01/02/2017 at 8:14:00 pm. Findings Carotid Duplex: Right: The right proximal common carotid artery has a PSV of 112 cm/s and a EDV of 11 cm/s. The right mid common carotid artery has a PSV of 106 cm/s and a EDV of 11 cm/s. The right distal common carotid artery has a PSV of 101 cm/s and a EDV of 11 cm/s. There is nonstenotic plaque in the right bifurcation with a PSV of 73 cm/s and a EDV of 11 cm/s. There is smooth heterogeneous plaque. The right proximal internal carotid artery has a PSV of 82 cm/s and a EDV of 12 cm/s. The right mid internal carotid artery has a PSV of 93 cm/s and a EDV of 22 cm/s. The right distal internal carotid artery has a PSV of 102 cm/s and a EDV of 15 cm/s. The right eca has a PSV of 145 cm/s and a EDV of 6 cm/s. The right vertebral artery has a PSV of 64 cm/s and a EDV of 12 cm/s. There is antegrade spectral Doppler flow patterns. Left: The left proximal common carotid artery has a PSV of 145 cm/s and a EDV of 9 cm/s. The left mid common carotid artery has a PSV of 141 cm/s and a EDV of 11 cm/s. The left distal common carotid artery has a PSV of 128 cm/s and a EDV of 13 cm/s. There is nonstenotic plaque in the left bifurcation with a PSV of 79 cm/s and a EDV of 12 cm/s. There is smooth heterogeneous plaque. The left proximal internal carotid artery has a PSV of 98 cm/s and a EDV of 20 cm/s. The left mid internal carotid artery has a PSV of 72 cm/s and a EDV of 13 cm/s. The left distal internal carotid artery has a PSV of 67 cm/s and a EDV of 15 cm/s. The left vertebral artery has a PSV of 91 cm/s and a EDV of 13 cm/s. There is antegrade spectral Doppler flow patterns. Prior Study: No prior study available for comparison. Carotid Results Right PSV EDV Assessment Proximal CCA 112 11 Mid CCA 106 11 Distal CCA 101 11 Bifurcation 73 11 Non Stenotic Plaque Proximal ICA 82 12 Mid ICA 93 22 Distal ICA 102 15 ECA 145 6 Vertebral Artery 64 12 Antegrade Flow Left PSV EDV Assessment Proximal CCA 145 9 Mid CCA 141 11 Distal CCA 128 13 Bifurcation 79 12 Non Stenotic Plaque Proximal ICA 98 20 Mid ICA 72 13 Distal ICA 67 15 Vertebral Artery 91 13 Antegrade Flow Ratio's Right ICA/CCA Ratio: 0.96 ICA/CCA Values: 102/106 Left ICA/CCA Ratio: 0.70 ICA/CCA Values: 98/141 Updated by Blaise Castro MD, FACS on 01/05/2017 9:34:09 AM Blaise Castro MD electronically signed on 01/05/2017 9:35:10 AM with status of Final
[2017-01-05] MEDS ORDERED: *HR* Heparin 5,000 UNIT/ML VIAL SQ SCH (11:15)
--- NOTE | 2017-01-05 11:23 | Cardiology Progress Note ---
Date of Encounter: 01/05/17 Time of Encounter: 11:21 Assessment and Plan (1) Pre-syncope Current Visit: Yes Status: Acute Describes presyncopal symptoms. Denies loss of consciousness. TTE shows EF 55-60%. No significant valvular disease. No pulmonary hypertension. Initially seen to have HR as low as 33 bpm and a 3.6 second pause. Unclear if he his symptoms was from this, he was started on higher dose of lopressor. Discussed with Dr. Gonzalez, symptoms sounded like vertigo. Seen by neurology. Appreciate recommendations. 24 hour telemetry review shows avg HR at 75 bpm. Minimum was 47 bpm at 2130, Maximum was 120 bpm at 0820 atrial fibrillation with rvr. Hr currently 80-90. He is hemodynamically stable at this time. Recommend adding low dose Lopressor back at previous dose to avoid atrial fibrillation with RVR reoccurence. 48 hour holter monitor at discharge. F/u with cardiology in 1-2 weeks. (2) Symptomatic bradycardia Current Visit: Yes Status: Acute See plan above. Unclear if bradycardia causing symptoms at this time. Pt has vertigo. Out pt monitor ordered. (3) CAD (coronary artery disease) Current Visit: Yes Status: Chronic History of remote PCI. He denies any chest pain. Troponins are negative. Continue aspirin and statin therapy, and low dose bb. Stress test in was negative for ischemia or infarct. Qualifiers: Coronary Disease-Associated Artery/Lesion type: [place] artery [place] vs. transplanted heart: [place] heart Associated angina: without angina Qualified Code(s): I25.10 - Atherosclerotic heart disease of [place] coronary artery without angina pectoris (4) Hypertension Current Visit: Yes Status: Acute Blood pressure stable. Qualifiers: Hypertension type: essential hypertension Qualified Code(s): I10 - Essential (primary) hypertension (5) Atrial fibrillation Current Visit: Yes Status: Chronic Patient with Atrial fibrillation rate controlled,add back low dose metoprolol. 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 Qualifiers: Atrial fibrillation type: chronic Qualified Code(s): I48.2 - Chronic atrial fibrillation Discussion w patient/family: The assessment and plan as outlined above was discussed with the patient and/or family members who expressed understanding and agreement. All questions were answered. Thank you for involving us in the care of your patient. Please call with any questions. Subjective Principal diagnosis: pre-syncope Interval history: Mr. Garcia reports recurrent dizziness sitting in his chair yesterday morning. Denies recurrent symptoms. Objective Vital Signs Temp Pulse Pulse Pulse Pulse Resp BP 01/05/17 07:17 98.3 F 87 15 139/83 01/05/17 05:04 98.6 F 75 16 141/90 01/05/17 00:37 98.1 F 84 16 121/78 01/04/17 21:31 97.9 F 72 16 119/69 01/04/17 18:21 79 85 100 01/04/17 14:41 97.5 F L 69 16 147/84 01/04/17 11:39 97.5 F L 76 16 166/71 BP BP BP Pulse Ox 01/05/17 07:17 98 01/05/17 05:04 97 01/05/17 00:37 97 01/04/17 21:31 98 01/04/17 18:21 129/68 139/85 117/77 01/04/17 14:41 97 01/04/17 11:39 98 Intake and Output 01/04/17 01/05/17 01/05/17 23:59 07:59 15:59 Intake Total 120 / 120 500 / 500 360 / 360 Output Total 200 / 200 Balance 120 / 120 300 / 300 360 / 360 Intake: Oral 120 / 120 500 / 500 360 / 360 Output: Urine 200 / 200 Other: Meal Dinner Breakfast Percent of Meal Consumed 25% 100% # Voids 0 Weight 88.2 kg Patient Weight 01/05/17 23:59 Weight 88.2 kg General: Conversant, No Apparent Distress, Other HEENT: Atraumatic, Normocephaly, Mucus Membranes Moist Neck: No JVD, Normal carotid pulses Cardiac: Reg Rate and Rhythm, Normal S1 and S2, No Murmur Lungs: Normal Breath Sounds, No Wheeze, Rales, Rhonchi Neuro: Alert and responsive, No focal deficits noted Abdomen: Soft, Non-Tender Skin: No rashes noted on visualized skin Musculoskeletal: No Chest Wall Tenderness Extremities: No Clubbing, No Cyanosis, No Edema, Normal Pulses Results 01/05/17 05:27 01/05/17 05:27 Lab Results 01/05/17 01/05/17 05:27 05:27 WBC 6.5 Hgb 14.0 Hct 42.3 Plt Count 276 Sodium 139 Potassium 4.3 Chloride 109 Carbon Dioxide 20 BUN 17 Creatinine 0.80 Glucose 161 H Calcium 9.1 Magnesium 1.8 Total Bilirubin 0.5 AST 16 ALT 16 Alkaline Phosphatase 74 Chest X-Ray 01/02/17 13:22 IMPRESSION: No acute cardiac or pulmonary disease. Moderate stable cardiomegaly. D/ / Gennaro Lawson MD / Gennaro Lawson MD Interpreting Provider: Gennaro Lawson MD Head CT 01/02/17 16:50 IMPRESSION: No hemorrhage or mass Underlying atrophy with periventricular and scattered frontal parietal white matter disease, likely due to small-vessel ischemic change. Appearance is similar D/ / Valentin Pino MD / Valentin Pino MD Interpreting Provider: Valentin Pino MD Brain MRI 01/03/17 12:24 IMPRESSION: No acute intracranial abnormality. Small old lacunar infarct versus prominent perivascular space in the right basal ganglia. Mild parenchymal volume loss. Mild chronic microvascular disease. Unremarkable MRA of the head. D/ / Car Menjivar MD / Car Menjivar MD Interpreting Provider: Car Menjivar MD Head MRA 01/03/17 12:25 IMPRESSION: No acute intracranial abnormality. Small old lacunar infarct versus prominent perivascular space in the right basal ganglia. Mild parenchymal volume loss. Mild chronic microvascular disease. Unremarkable MRA of the head. D/ / Car Menjivar MD / Car Menjivar MD Interpreting Provider: Car Menjivar MD Chest CTA 01/03/17 12:26 IMPRESSION: 1. No evidence of pulmonary embolism or other acute abnormality in the chest. 2. Significant coronary artery atherosclerotic vascular calcifications. 3. Several scattered small bilateral pulmonary nodules the largest of which measures approximately 6 x 5 mm in the lingula. See recommendations below. Fleischner Society guidelines for follow-up and management of pulmonary nodules: Nodule size equals 4-6 mm In a low-risk patient, follow-up CT at 12 months; if unchanged, no further follow-up. In a high-risk patient, initial follow-up CT at 6-12 months then at 18-24 months if no change. Low risk patients include individuals with minimal or absent history of smoking and other known risk factors. High risk patients include individuals with a history of smoking or other known risk factors. Radiology 2005; 237:395-400 D/ / Link Anglin MD / Link Anglin MD Interpreting Provider: Link Anglin MD - EKG Interpretation EKG results cardiology: other (24 hour telemetry review shows avg HR at 75 bpm. Minimum was 47 bpm at 2130, Maximum was 120 bpm at 0820 atrial fibrillation with rvr. Hr currently 80-90.) Consult Discharge Plan - Plan Referrals: Una Pascal CNP [Primary Care Provider] - 01/08/17 9:00 am
[2017-01-05 11:35] VITALS: BP 127/71
--- NOTE | 2017-01-05 13:47 | Internal Med Progress Note ---
<ShakeelCata castañeda - Last Filed: 01/05/17 13:45> Date of Encounter: 01/05/17 Time of Encounter: 08:30 - Assessment and plan (1) Vestibular neuronitis Current Visit: Yes Status: Suspected Assessment and plan: Neurology on board for recommendations. Decreased steroids to 40mg IV daily. Continue PRN antiemetics, valium and meclizine. PT consult for balance and further recommendations. 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 CTA showed no evidence of pulmonary embolism or other acute abnormality in the chest. Showed significant coronary artery atherosclerotic vascular calcifications, severe scattered bilateral pulmonary nodules, the largest of which measures 5.6mm in the lingula. Recommend follow up CT in 12 months. MRA/MRI head showd no acute intracranial abnormality. Echo showed LVEF 55-60%, no pulmonary hypertension, no significant valvular dysfunction. MRI/MRA and CTA of chest are negative for acute process. Most likely this is vestibular neuronitis. Neuro input appreciated. IV Steroids, antiemetics and meclizine ordered. PRN Valium as well. Plan for 48 hour holter monitor at discharge, per cardiology, and cardiology follow up in 1-2 weeks (3) Atrial fibrillation Current Visit: Yes Status: Chronic Assessment and plan: rate controlled, on Metoprolol 12.5mg PO BID and low dose ASA. Patient was on anticoagulation but taken off after CVA in 2014. Qualifiers: Atrial fibrillation type: chronic Qualified Code(s): I48.2 - Chronic atrial fibrillation (4) CAD (coronary artery disease) Current Visit: Yes Status: Chronic Assessment and plan: Continue ASA, Gemfibrozil, Metoprolol, Qualifiers: Coronary Disease-Associated Artery/Lesion type: [place] artery [place] vs. transplanted heart: [place] heart Associated angina: without angina Qualified Code(s): I25.10 - Atherosclerotic heart disease of [place] coronary artery without angina pectoris (5) Hypertension Current Visit: Yes Status: Acute Assessment and plan: Monitoring, patient started back on home med Amlodipine. Qualifiers: Hypertension type: essential hypertension Qualified Code(s): I10 - Essential (primary) hypertension (6) DVT prophylaxis Current Visit: Yes Status: Acute Assessment and plan: Heparin SQ - Subjective Interval history: 81 year old male evaluated at bedside. He denies nausea, vomiting, diarrhea, fever, chills, dizziness, lightheadedness. - Constitutional Vitals: Temp Pulse Resp BP Pulse Ox 98.3 F 84 15 127/71 95 01/05/17 11:33 01/05/17 11:33 01/05/17 11:33 01/05/17 11:33 01/05/17 11:33 General appearance: Present: A&O X 3, severe distress, answers questions appropriately - Head Head exam: Present: atraumatic, normocephalic - Neck Neck exam general surgery: Present: supple, trachea midline - Respiratory Respiratory exam: Present: CTAB - Cardiovascular Cardiovascular exam: Present: irregular rhythm - GI/Abdominal GI/Abdominal exam: Present: normal bowel sounds, soft. Absent: tenderness Additional comments: abdominal scars present from prior surgeries. - Extremities Exam Extremities exam: Absent: cyanotic, pedal edema - Neurological Exam Neurological exam: Present: alert, oriented X3, no focal deficits - Psychiatric Psychiatric exam: Present: normal affect, normal mood Internal Medicine: Result - Labs CBC & Chem 7: 01/05/17 05:27 01/05/17 05:27 Labs: Short CBC 01/05/17 Range/Units 05:27 WBC 6.5 (4.3-11.1) K/mcL Hgb 14.0 (12.9-16.9) g/dL Hct 42.3 (37.5-50.1) % Plt Count 276 (140-400) K/mcL BMP 01/05/17 05:27 Sodium 139 Potassium 4.3 Chloride 109 Carbon Dioxide 20 BUN 17 Creatinine 0.80 Glucose 161 H Calcium 9.1 Liver Function 01/05/17 Range/Units 05:27 Total Bilirubin 0.5 (0.2-1.2) mg/dL AST 16 (5-34) Units/L ALT 16 (0-55) Units/L Alkaline Phosphatase 74 (38-126) Units/L Albumin 3.4 L (3.5-5.0) g/dL - ABG Interpretation ABG results: PT/INR, D-dimer PT 11.4 Seconds (9.4-12.1) 01/02/17 13:46 Consult Discharge Plan - Plan Instructions: Metoprolol (By mouth), Prednisone (By mouth), Meclizine (By mouth ), Ondansetron (By mouth), Atrial Fibrillation (DC), Syncope (DC), Chronic Hypertension (DC), Bradycardia (DC), Bradycardia (GEN) Referrals: Harry Dunn H[employer] HELPER [Advanced Practice Nurse] - Una Pascal CNP [Primary Care Provider] - 01/08/17 9:00 am Blanca Atkins MD [Partnered Physician] - Prescriptions: Ondansetron ODT [Zofran ODT] 4 mg SL Q8HR #90 tab.rapdis Meclizine [Antivert] 25 mg PO TID PRN #90 tablet PRN Reason: Dizziness Metoprolol [Lopressor] 12.5 mg PO BID #60 tablet PredniSONE [Prednisone] 10 mg PO AD #41 tab.ds.pk <Segundo Garcia - Last Filed: 01/05/17 17:30> Date of Encounter: 01/05/17 - Assessment and plan (1) Vestibular neuronitis Current Visit: Yes Status: Suspected Qualifiers: Laterality: bilateral Qualified Code(s): 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 transplanted heart: [place] heart Associated angina: without angina Qualified Code(s): I25.10 - Atherosclerotic heart disease of [place] coronary artery without angina pectoris (5) Hypertension Current Visit: Yes Status: Acute Qualifiers: Hypertension type: essential hypertension Qualified Code(s): I10 - Essential (primary) hypertension - Constitutional Vitals: Temp Pulse Resp BP Pulse Ox 98.3 F 84 15 127/71 95 01/05/17 11:33 01/05/17 11:33 01/05/17 11:33 01/05/17 11:33 01/05/17 11:33 Internal Medicine: Result - Labs CBC & Chem 7: 01/05/17 05:27 01/05/17 05:27 Labs: Short CBC 01/05/17 Range/Units 05:27 WBC 6.5 (4.3-11.1) K/mcL Hgb 14.0 (12.9-16.9) g/dL Hct 42.3 (37.5-50.1) % Plt Count 276 (140-400) K/mcL BMP 01/05/17 05:27 Sodium 139 Potassium 4.3 Chloride 109 Carbon Dioxide 20 BUN 17 Creatinine 0.80 Glucose 161 H Calcium 9.1 Liver Function 01/05/17 Range/Units 05:27 Total Bilirubin 0.5 (0.2-1.2) mg/dL AST 16 (5-34) Units/L ALT 16 (0-55) Units/L Alkaline Phosphatase 74 (38-126) Units/L Albumin 3.4 L (3.5-5.0) g/dL - ABG Interpretation ABG results: PT/INR, D-dimer PT 11.4 Seconds (9.4-12.1) 01/02/17 13:46 - Attending Attestation I examined this patient and my medical decision-making was reviewed with the Resident Physician on 01/05/17. I agree with the documented findings, disposition and treatment plan as described except to the extent set forth below. Pt feeling better. OK for discharge. Please see discharge summary from same date.
--- NOTE | 2017-01-05 14:34 | Discharge Summary ---
<Cata Goodwin - Last Filed: 01/05/17 14:13> Date of Encounter: 01/05/17 Time of Encounter: 08:30 - Discharge Diagnosis (1) Vestibular neuronitis Priority: Primary Status: Suspected Qualifiers: Laterality: bilateral Qualified Code(s): H81.23 - Vestibular neuronitis, bilateral (2) Pre-syncope Priority: Secondary Status: Acute (3) Atrial fibrillation Priority: Secondary Status: Chronic Qualifiers: Atrial fibrillation type: chronic Qualified Code(s): I48.2 - Chronic atrial fibrillation (4) CAD (coronary artery disease) Priority: Secondary Status: Chronic Qualifiers: Coronary Disease-Associated Artery/Lesion type: [place] artery [place] vs. transplanted heart: [place] heart Associated angina: without angina Qualified Code(s): I25.10 - Atherosclerotic heart disease of [place] coronary artery without angina pectoris (5) Hypertension Priority: Secondary Status: Acute Qualifiers: Hypertension type: essential hypertension Qualified Code(s): I10 - Essential (primary) hypertension (6) DVT prophylaxis Priority: Secondary Status: Acute - Discharge Medications Prescriptions: Ondansetron ODT [Zofran ODT] 4 mg SL Q8HR #90 tab.rapdis Meclizine [Antivert] 25 mg PO TID PRN #90 tablet PRN Reason: Dizziness Metoprolol [Lopressor] 12.5 mg PO BID #60 tablet PredniSONE [Prednisone] 10 mg PO AD #41 tab.ds.pk Home Medications: Amlodipine Besylate 10 mg PO DAILY 01/02/17 [History] Aspirin Enteric Coated [Aspirin EC] 81 mg PO DAILY 01/02/17 [History] Esomeprazole Magnesium [Nexium] 20 mg PO DAILY 01/02/17 [History] Furosemide [Lasix] 20 mg PO 2XW 01/02/17 [History] Gabapentin [Neurontin] 600 mg PO HS 01/02/17 [History] Gemfibrozil [Lopid] 600 mg PO DAILY 01/02/17 [History] Isosorbide MONOnitrate (24 HR) [Imdur] 30 mg PO DAILY 01/02/17 [History] Meclizine [Antivert] 25 mg PO TID PRN #90 tablet 01/05/17 [Rx] Metoprolol [Lopressor] 12.5 mg PO BID #60 tablet 01/05/17 [Rx] Ondansetron ODT [Zofran ODT] 4 mg SL Q8HR #90 tab.rapdis 01/05/17 [Rx] PredniSONE [Prednisone] 10 mg PO AD #41 tab.ds.pk 01/05/17 [Rx] Allergies/Adverse Reactions: Allergies No Known Allergies Allergy (Unverified 09/28/15 10:08) Procedures/tests Complete & Pending: Procedures Performed prior 72 hours Category Date Time Status ECG 12 lead ECG [ECG] Routine Y 01/04/17 12:06 Completed ECG 48 holter monitor setup [ECG] Routine Y 01/05/17 11:57 Completed Date of admission: 01/04/17 09:29 Primary care physician: Una Pascal CNP Consults: 01/04/17 18:56 Consult to Physical Therapy [CONS] Routine Comment: Evaluate, develop and implement POC -vestibular 01/04/17 18:57 Consult to Neurology [CONS] Routine Consulting Provider: [facility] Reason for Consult: vertigo Already seen Call Completed: Yes - Patient Status Disposition: Home Health Service Condition: Good Functional capacity at discharge: uses cane/walker Overall status at discharge: patient is progressing back to baseline - Discharge Instructions Instructions: Metoprolol (By mouth), Prednisone (By mouth), Meclizine (By mouth ), Ondansetron (By mouth), Atrial Fibrillation (DC), Syncope (DC), Chronic Hypertension (DC), Bradycardia (DC), Bradycardia (GEN) Follow Up With: Una Pascal CNP [Primary Care Provider] - 01/08/17 9:00 am Blanca Atkins MD [Partnered Physician] - Harry Dunn CNP [Advanced Practice Nurse] - - Diet and Activity Activity: as per physical therapy Diet: low fat, low cholesterol Hospital course: Mr. 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 He presented tot he Ed on with CC of multiple pre-syncopal episodes. He never had any loss of consciousness. Patient had described these episodes as sudden onset of dizziness with darkening of his vision field, loss of balance, lightheadedness, and feeling like he is going to feint. He also had some episodes of nausea and vomiting. He has had several of these episodes over the last month and these episodes have increased in frequency. EKG showed Afib with moderate ST depression in lateral leads, unchanged from previous EKG in may 2014. Chest xray showed no acute cardiopulmonary process, but moderate and stable cardiomegaly. Troponins were normal. Patient's home meds were continued in the hospital setting. Cardiology and neurology were consulted for evaluation. Patient's home dose of metoprolol was adjusted to 12.5mg BID for rate control of Afib. Of note, patient was previously on anticoagulation but taken off after he had a CVA in 2014. CTA showed no evidence of pulmonary embolism or other acute abnormality in the chest. Showed significant coronary artery atherosclerotic vascular calcifications, severe scattered bilateral pulmonary nodules, the largest of which measures 5.6mm in the lingula. (Recommend follow up CT in 12 months). MRA/MRI head showd no acute intracranial abnormality. Echo showed LVEF 55-60%, no pulmonary hypertension, no significant valvular dysfunction. Patient was placed on IV steroids, antiemetics, meclizine, and PRN valium. Cardiology has recommended 48 hour holter monitor at discharge with cardiology follow up in 1-3 weeks. Throughout the course of patient's hospital stay, he had no acute events and remained stable, and showed significant clinical improvement. Plan: follow up with cardiology in 1-2 weeks . FOllow up with Dr. Atkins (neurology) in 1-2 weeks. Follow up with PCP in 1 week. Wear holter monitor as instructed by cardiology. Take prednisone taper as directed. Take meclizine and zofran as directed. Metoprolol dose changed to 12.5mg BID. - Time Spent with Patient Total time spent providing and/or coordinating discharge services: - Constitutional Vitals: Temp Pulse Resp BP Pulse Ox 98.3 F 84 15 127/71 95 01/05/17 11:33 01/05/17 11:33 01/05/17 11:33 01/05/17 11:33 01/05/17 11:33 General appearance: Present: A&O X 3, severe distress, answers questions appropriately - Head Head exam: Present: atraumatic, normocephalic - Neck Neck exam general surgery: Present: supple, trachea midline - Respiratory Respiratory exam: Present: CTAB - Cardiovascular Cardiovascular exam: Present: irregular rhythm - GI/Abdominal Additional comments: scars present from previous abdominal surgeries. - Extremities Exam Extremities exam: Absent: cyanotic, pedal edema - Neurological Exam Neurological exam: Present: alert, oriented X3, no focal deficits - Psychiatric Psychiatric exam: Present: normal affect, normal mood <Segundo Garcia - Last Filed: 01/05/17 17:21> Date of Encounter: 01/05/17 - Discharge Diagnosis (1) Vestibular neuronitis Status: Suspected Qualifiers: Laterality: bilateral Qualified Code(s): H81.23 - Vestibular neuronitis, bilateral (2) Pre-syncope Status: Acute (3) Atrial fibrillation Status: Chronic Qualifiers: Atrial fibrillation type: chronic Qualified Code(s): I48.2 - Chronic atrial fibrillation (4) CAD (coronary artery disease) Status: Chronic Qualifiers: Coronary Disease-Associated Artery/Lesion type: [place] artery [place] vs. transplanted heart: [place] heart Associated angina: without angina Qualified Code(s): I25.10 - Atherosclerotic heart disease of [place] coronary artery without angina pectoris (5) Hypertension Status: Acute Qualifiers: Hypertension type: essential hypertension Qualified Code(s): I10 - Essential (primary) hypertension Procedures/tests Complete & Pending: Procedures Performed prior 72 hours Category Date Time Status ECG 12 lead ECG [ECG] Routine Y 01/04/17 12:06 Completed ECG 48 holter monitor setup [ECG] Routine Y 01/05/17 11:57 Completed Date of admission: 01/04/17 09:29 Primary care physician: Una Pascal CNP Consults: 01/04/17 18:56 Consult to Physical Therapy [CONS] Routine Comment: Evaluate, develop and implement POC -vestibular 01/04/17 18:57 Consult to Neurology [CONS] Routine Consulting Provider: Neurology [facility] Reason for Consult: vertigo Already seen Call Completed: Yes Hospital course: Mr. Garcia is a 81 year old male - Time Spent with Patient Total time spent providing and/or coordinating discharge services: 41min - Constitutional Vitals: Temp Pulse Resp BP Pulse Ox 98.3 F 84 15 127/71 95 01/05/17 11:33 01/05/17 11:33 01/05/17 11:33 01/05/17 11:33 01/05/17 11:33 - Attending Attestation I examined this patient and my medical decision-making was reviewed with the Resident Physician on 01/05/17. I agree with the documented findings, disposition and treatment plan as described except to the extent set forth below. Mr. Garcia is feeling better today. No further episodes. Able to get up and move around. Exam Alert. Comfortable Heart irreg - not tachy No wheeze Plan D/C today Follow up with Dr. Atkins with plans for vestibular therapy. Complete course of Prednisone, PRN meclizine and zofran
--- NOTE | 2017-01-05 14:38 | Electrocardiograph Report ---
[address] [address] Test Date: 2017-01-02 Pat Name: Nas Garcia Department: 102 Room: 2N1 Gender: M Vending Machine Mechanic: : [id number] Requested By: Alexis Danielle Order Number: [id number] Reading MD: Marquez Whitfield Measurements Intervals [place] Rate: 74 P: [place]: 0 QRS: -7 QRSD: 78 T: 9 QT: 407 QTc: 435 Interpretive Statements ATRIAL FIBRILLATION MODERATE ST DEPRESSION [0.05+ mV ST DEPRESSION] Electronically Signed On 01-05-2017 14:37:26 EST by Marquez Whitfield
--- NOTE | 2017-01-05 14:58 | Electrocardiograph Report ---
[place] [address] Test Date: 2017-01-04 Pat Name: Nas Garcia Department: 113 Room: 2NE21 Gender: M Technical Applications Specialist: : [id number] Requested By: Segundo Garcia Order Number: [id number] Reading MD: Gil Milner MD Measurements Intervals [place] Rate: 63 P: NM: 0 QRS: -2 QRSD: 105 T: 11 QT: 429 QTc: 437 Interpretive Statements ATRIAL FIBRILLATION Electronically Signed On 01-05-2017 14:57:33 EST by Gil Milner MD
[2017-01-06] MEDS ORDERED: MethylPREDNISolone 40 MG/ML VIAL IVP SCH (09:00)
== END 2017-01-05 18:00 | disposition home health service (06) | DRG 149 ==
LOC: EMEROO 13:07 → 3BNU 13:07 → SUATTDRO 16:08 → 3BNU 16:42 → 2NENU 01-04 14:17
PROVIDERS: ADMIT Family Medicine; ATTEND Internal Medicine

== ENCOUNTER 2018-09-23 18:30 | Inpatient (IN) ==
[2018-09-23] MEDS ORDERED: Isovue-370 500 ML INFUS..BTL IV ONE (18:50)
[2018-09-23 19:06] LABS: Basophils % 0.5 %; Eosinophils # 0.1 K/mcL (0.0-0.6); Eosinophils % 1.6 %; Hematocrit 39.4 % (37.5-50.1); Hemoglobin 13.2 g/dL (12.9-16.9); Immature Granulocytes % 0.8 % (0-4); Lymphocytes # 2.8 K/mcL (0.6-4.6); Lymphocytes % 31.6 %; Mean Corpuscular HGB Conc 33.5 g/dL (31.6-35.5); Mean Corpuscular Hemoglobin 30.3 pg (28.0-33.3); Mean Corpuscular Volume 90.6 fL (83.0-100.0); Mean Platelet Volume 11.1 fL (9.4-12.4); Monocytes % 10.9 %; Neutrophils # 4.8 K/mcL (1.6-8.9); Platelet Count 277 K/mcL (140-400); Red Blood Count 4.35 M/mcL (4.19-5.50); Segmented Neutrophils % 54.6 %
[2018-09-23] MEDS ORDERED: 0.9 % Sodium Chloride 2,000 ML ONE (19:07)
[2018-09-23 19:16] LABS: Activated Partial Thrombo Time 38.2 Seconds (26.0-36.0)
[2018-09-23 19:25] LABS: Prothrombin Time 11.2 Seconds (9.4-12.1)
[2018-09-23 19:29] LABS: BUN/Creatinine Ratio 18 (6-26); Blood Urea Nitrogen 15 mg/dL (8-23); Calcium 9.4 mg/dL (8.6-10.3); Carbon Dioxide 21 mEq/L (23-29); Chloride 104 mEq/L (98-107); Glucose 145 mg/dL (70-105); Osmolality,Calculated 287 (280-300); Potassium 3.8 mEq/L (3.5-5.1); Sodium 137 mEq/L (136-145); eGFR For Non-African Americans > 60 (> 60)
--- NOTE | 2018-09-23 19:46 | Emergency Department Note ---
Disposition Clinical Impression: Lactic acidosis Gastrointestinal bleeding Qualifiers: GI bleed type/associated pathology: unspecified gastrointestinal hemorrhage type Qualified Code(s): K92.2 - Gastrointestinal hemorrhage, unspecified Hypothermia Qualifiers: Encounter type: initial encounter Qualified Code(s): T68.XXXA - Hypothermia, initial encounter Disposition: Admitted As Inpatient Condition: Critical General Adult HPI - General Chief complaint: ED GI Bleed Stated complaint: Rectal Bleeding Time Seen by Provider: 09/23/18 18:34 Source: patient, family Limitations: no limitations - History of Present Illness Pain Scale: 0 - Related Data Home Medications Medication Instructions Recorded Confirmed Amlodipine Besylate 10 mg PO DAILY 01/02/17 09/15/18 Aspirin Enteric Coated [Aspirin EC] 81 mg PO DAILY 01/02/17 09/15/18 Esomeprazole Magnesium [Nexium] 20 mg PO DAILY 01/02/17 09/15/18 Furosemide [Lasix] 20 mg PO 2XW 01/02/17 09/15/18 Gabapentin [Neurontin] 600 mg PO HS 01/02/17 09/15/18 Gemfibrozil [Lopid] 600 mg PO DAILY 01/02/17 09/15/18 Isosorbide MONOnitrate (24 HR) 30 mg PO DAILY 01/02/17 09/15/18 [Imdur] Calcium Carbonate/Vitamin D3 1 each PO DAILY 12/24/17 09/15/18 [Calcium 600 + Vit D Tablet] Vitamin E Acid Succinate [Vitamin 400 units PO DAILY 12/24/17 06/23/18 E] Metoprolol [Lopressor] 25 mg PO BID 03/31/18 09/15/18 Previous Rx's Medication Instructions Recorded Ondansetron ODT [Zofran ODT] 4 mg SL Q6HR PRN #30 tab.rapdis 11/11/17 Enzalutamide [Xtandi] 80 mg PO DAILY #120 capsule 09/15/18 predniSONE [PredniSONE] 5 mg PO BID #60 tablet 09/15/18 Allergies Allergy/AdvReac Type Severity Reaction Status Date / Time No Known Allergies Allergy Verified 06/23/18 10:30 Past Medical History - Past Medical History Medical history: Reports: cancer, CVA, hypertension, other Surgical history: Reports: angioplasty/stent, herniorrhaphy Psychiatric history: Reports: no psych history - Social History Smoking Status: Never smoker Smokeless Tobacco Status: No Alcohol use: Reports: none Drug use: Reports: none Physical Exam - General Limitations: no limitations General appearance: alert, in no apparent distress Course Vital Signs Temperature 97.8 F 09/23/18 18:34 Pulse Rate 112 09/23/18 18:34 Respiratory Rate 20 09/23/18 18:34 Blood Pressure 151/87 09/23/18 18:34 O2 Sat by Pulse Oximetry 98 09/23/18 18:34 Temperature 96.1 F L 09/23/18 19:50 Pulse Rate 70 09/23/18 19:50 Respiratory Rate 20 09/23/18 19:50 Blood Pressure 156/88 09/23/18 19:50 O2 Sat by Pulse Oximetry 100 09/23/18 19:50 Oxygen Delivery Oxygen Delivery Nasal Cannula Medical Decision Making - Lab Data Result diagrams: 09/23/18 18:54 09/23/18 18:54 Lab Results 09/23/18 09/23/18 09/23/18 Range/Units 18:54 18:54 18:54 WBC 8.8 (4.3-11.1) K/mcL RBC 4.35 (4.19-5.50) M/mcL Hgb 13.2 (12.9-16.9) g/dL Hct 39.4 (37.5-50.1) % MCV 90.6 (83.0-100.0) fL MCH 30.3 (28.0-33.3) pg MCHC 33.5 (31.6-35.5) g/dL RDW 14.0 (11.5-14.5) % Plt Count 277 (140-400) K/mcL MPV 11.1 (9.4-12.4) fL Immature Gran % 0.8 (0-4) % Seg Neutrophils % 54.6 % Lymphocytes % 31.6 % Monocytes % 10.9 % Eosinophils % 1.6 % Basophils % 0.5 % Neutrophils # 4.8 (1.6-8.9) K/mcL Lymphocytes # 2.8 (0.6-4.6) K/mcL Monocytes # 1.0 (0.0-1.3) K/mcL Eosinophils # 0.1 (0.0-0.6) K/mcL Basophils # 0.0 (0.0-0.2) K/mcL PT 11.2 (9.4-12.1) Seconds INR 1.0 APTT 38.2 H (26.0-36.0) Seconds Sodium 137 (136-145) mEq/L Potassium 3.8 (3.5-5.1) mEq/L Chloride 104 (98-107) mEq/L Carbon Dioxide 21 L (23-29) mEq/L BUN 15 (8-23) mg/dL Creatinine 0.85 (0.70-1.30) mg/dL Est GFR ( Amer) > 60 (> 60) Est GFR (Non-Af Amer) > 60 (> 60) BUN/Creatinine Ratio 18 (6-26) Glucose 145 H (70-105) mg/dL Calculated Osmolality 287 (280-300) Lactic Acid (0.5-2.2) mmol/L Calcium 9.4 (8.6-10.3) mg/dL Blood Type Antibody Screen Crossmatch 09/23/18 09/23/18 Range/Units 19:06 19:06 WBC (4.3-11.1) K/mcL RBC (4.19-5.50) M/mcL Hgb (12.9-16.9) g/dL Hct (37.5-50.1) % MCV (83.0-100.0) fL MCH (28.0-33.3) pg MCHC (31.6-35.5) g/dL RDW (11.5-14.5) % Plt Count (140-400) K/mcL MPV (9.4-12.4) fL Immature Gran % (0-4) % Seg Neutrophils % % Lymphocytes % % Monocytes % % Eosinophils % % Basophils % % Neutrophils # (1.6-8.9) K/mcL Lymphocytes # (0.6-4.6) K/mcL Monocytes # (0.0-1.3) K/mcL Eosinophils # (0.0-0.6) K/mcL Basophils # (0.0-0.2) K/mcL PT (9.4-12.1) Seconds INR APTT (26.0-36.0) Seconds Sodium (136-145) mEq/L Potassium (3.5-5.1) mEq/L Chloride (98-107) mEq/L Carbon Dioxide (23-29) mEq/L BUN (8-23) mg/dL Creatinine (0.70-1.30) mg/dL Est GFR ( Amer) (> 60) Est GFR (Non-Af Amer) (> 60) BUN/Creatinine Ratio (6-26) Glucose (70-105) mg/dL Calculated Osmolality (280-300) Lactic Acid 2.4 H (0.5-2.2) mmol/L Calcium (8.6-10.3) mg/dL Blood Type A NEGATIVE Antibody Screen NEGATIVE Crossmatch See Detail Critical Care Time Critical Care Time: Yes Total Critical Care Time: 45 Attestation: Critical care time of 62 min spent in medical management of lower GI bleed, vasovagal episode, hypothermia, and consultation with surgery for endoscopy. Attestation Statement - Attestation Attestation: I examined this patient and my medical decision-making was reviewed with the Resident Physician. I agree with the documented findings, disposition and treatment plan as described except to the extent set forth below. 83-year-old male presented to the emergency room for rectal bleeding times one at home. Upon arrival patient had another bout of large rectal bleeding in the emergency room. This is all bright red blood. He does not take any blood thinners. Patient was initially tachycardic but he had normal blood pressures. He did have a what appears to be a vagal episode and when she got bradycardic in the 50s and got very diaphoretic and somewhat altered. He did improve. We moved him into one of our trauma rooms. We started him on trauma blood. Warmed iv fluids going with pressure bag. going. attempting to page endoscopy for possible scope. Pt has no history of colonoscopy but does have hx of prostate cancer. he only takes oral meds for it now. no chemo or radiation therapy. we have placed pt on bear hugger as well to help warm him up. vitals are stable at this time
--- NOTE | 2018-09-23 19:52 | Emergency Department Note ---
Disposition Clinical Impression: Lactic acidosis Gastrointestinal bleeding Qualifiers: GI bleed type/associated pathology: unspecified gastrointestinal hemorrhage type Qualified Code(s): K92.2 - Gastrointestinal hemorrhage, unspecified Hypothermia Qualifiers: Encounter type: initial encounter Qualified Code(s): T68.XXXA - Hypothermia, initial encounter Disposition: Admitted As Inpatient Condition: Critical Referrals: Una Pascal, ICHTHYOLOGY TEACHER [Primary Care Provider] - Forms: ED Satisfaction Letter Time of Disposition: 20:05 GI Bleed HPI - General Chief complaint: ED GI Bleed Stated complaint: Rectal Bleeding Time Seen by Provider: 09/23/18 18:34 Source: patient, family Limitations: no limitations - Related Data Home Medications Medication Instructions Recorded Confirmed Amlodipine Besylate 10 mg PO DAILY 01/02/17 09/15/18 Aspirin Enteric Coated [Aspirin EC] 81 mg PO DAILY 01/02/17 09/15/18 Esomeprazole Magnesium [Nexium] 20 mg PO DAILY 01/02/17 09/15/18 Furosemide [Lasix] 20 mg PO 2XW 01/02/17 09/15/18 Gabapentin [Neurontin] 600 mg PO HS 01/02/17 09/15/18 Gemfibrozil [Lopid] 600 mg PO DAILY 01/02/17 09/15/18 Isosorbide MONOnitrate (24 HR) 30 mg PO DAILY 01/02/17 09/15/18 [Imdur] Calcium Carbonate/Vitamin D3 1 each PO DAILY 12/24/17 09/15/18 [Calcium 600 + Vit D Tablet] Vitamin E Acid Succinate [Vitamin 400 units PO DAILY 12/24/17 06/23/18 E] Metoprolol [Lopressor] 25 mg PO BID 03/31/18 09/15/18 Previous Rx's Medication Instructions Recorded Ondansetron ODT [Zofran ODT] 4 mg SL Q6HR PRN #30 tab.rapdis 11/11/17 Enzalutamide [Xtandi] 80 mg PO DAILY #120 capsule 09/15/18 predniSONE [PredniSONE] 5 mg PO BID #60 tablet 09/15/18 Allergies Allergy/AdvReac Type Severity Reaction Status Date / Time No Known Allergies Allergy Verified 06/23/18 10:30 Past Medical History - Past Medical History Medical history: Reports: cancer, CVA, hypertension, other Surgical history: Reports: angioplasty/stent, herniorrhaphy Psychiatric history: Reports: no psych history - Social History Smoking Status: Never smoker Smokeless Tobacco Status: No Alcohol use: Reports: none Drug use: Reports: none Physical Exam - General Limitations: no limitations General appearance: alert, in no apparent distress Course - Reevaluation(s) Reevaluation #1: 19:55 - Dr. black called back. He states that he just received the last page at 19:51 and did not receive any of the previous ones (19:09). He will be down to evaluate the patient now. Dr. Black, and Dr. Barnes daily are down to admit the patient. Patient be admitted to the ICU. Time: 19:51 Vital Signs Temperature 97.8 F 09/23/18 18:34 Pulse Rate 112 09/23/18 18:34 Respiratory Rate 20 09/23/18 18:34 Blood Pressure 151/87 09/23/18 18:34 O2 Sat by Pulse Oximetry 98 09/23/18 18:34 Temperature 96.1 F L 09/23/18 19:50 Pulse Rate 70 09/23/18 19:50 Respiratory Rate 20 09/23/18 19:50 Blood Pressure 156/88 09/23/18 19:50 O2 Sat by Pulse Oximetry 100 09/23/18 19:50 Oxygen Delivery Oxygen Delivery Nasal Cannula GI Bleed - Lab Data Result diagrams: 09/23/18 18:54 09/23/18 18:54 Lab Results 09/23/18 09/23/18 09/23/18 Range/Units 18:54 18:54 18:54 WBC 8.8 (4.3-11.1) K/mcL RBC 4.35 (4.19-5.50) M/mcL Hgb 13.2 (12.9-16.9) g/dL Hct 39.4 (37.5-50.1) % MCV 90.6 (83.0-100.0) fL MCH 30.3 (28.0-33.3) pg MCHC 33.5 (31.6-35.5) g/dL RDW 14.0 (11.5-14.5) % Plt Count 277 (140-400) K/mcL MPV 11.1 (9.4-12.4) fL Immature Gran % 0.8 (0-4) % Seg Neutrophils % 54.6 % Lymphocytes % 31.6 % Monocytes % 10.9 % Eosinophils % 1.6 % Basophils % 0.5 % Neutrophils # 4.8 (1.6-8.9) K/mcL Lymphocytes # 2.8 (0.6-4.6) K/mcL Monocytes # 1.0 (0.0-1.3) K/mcL Eosinophils # 0.1 (0.0-0.6) K/mcL Basophils # 0.0 (0.0-0.2) K/mcL PT 11.2 (9.4-12.1) Seconds INR 1.0 APTT 38.2 H (26.0-36.0) Seconds Sodium 137 (136-145) mEq/L Potassium 3.8 (3.5-5.1) mEq/L Chloride 104 (98-107) mEq/L Carbon Dioxide 21 L (23-29) mEq/L BUN 15 (8-23) mg/dL Creatinine 0.85 (0.70-1.30) mg/dL Est GFR ( Amer) > 60 (> 60) Est GFR (Non-Af Amer) > 60 (> 60) BUN/Creatinine Ratio 18 (6-26) Glucose 145 H (70-105) mg/dL Calculated Osmolality 287 (280-300) Lactic Acid (0.5-2.2) mmol/L Calcium 9.4 (8.6-10.3) mg/dL Blood Type Antibody Screen Crossmatch 09/23/18 09/23/18 Range/Units 19:06 19:06 WBC (4.3-11.1) K/mcL RBC (4.19-5.50) M/mcL Hgb (12.9-16.9) g/dL Hct (37.5-50.1) % MCV (83.0-100.0) fL MCH (28.0-33.3) pg MCHC (31.6-35.5) g/dL RDW (11.5-14.5) % Plt Count (140-400) K/mcL MPV (9.4-12.4) fL Immature Gran % (0-4) % Seg Neutrophils % % Lymphocytes % % Monocytes % % Eosinophils % % Basophils % % Neutrophils # (1.6-8.9) K/mcL Lymphocytes # (0.6-4.6) K/mcL Monocytes # (0.0-1.3) K/mcL Eosinophils # (0.0-0.6) K/mcL Basophils # (0.0-0.2) K/mcL PT (9.4-12.1) Seconds INR APTT (26.0-36.0) Seconds Sodium (136-145) mEq/L Potassium (3.5-5.1) mEq/L Chloride (98-107) mEq/L Carbon Dioxide (23-29) mEq/L BUN (8-23) mg/dL Creatinine (0.70-1.30) mg/dL Est GFR ( Amer) (> 60) Est GFR (Non-Af Amer) (> 60) BUN/Creatinine Ratio (6-26) Glucose (70-105) mg/dL Calculated Osmolality (280-300) Lactic Acid 2.4 H (0.5-2.2) mmol/L Calcium (8.6-10.3) mg/dL Blood Type A NEGATIVE Antibody Screen NEGATIVE Crossmatch See Detail Critical Care Time Critical Care Time: Yes Total Critical Care Time: 65 Attestation: I personally spent __62____ minutes devoted to the care of this critically ill patient. This time excludes the time for billable procedures.
--- NOTE | 2018-09-23 19:56 | Emergency Department Note ---
Disposition Clinical Impression: Lactic acidosis Gastrointestinal bleeding Qualifiers: GI bleed type/associated pathology: unspecified gastrointestinal hemorrhage type Qualified Code(s): K92.2 - Gastrointestinal hemorrhage, unspecified Hypothermia Qualifiers: Encounter type: initial encounter Qualified Code(s): T68.XXXA - Hypothermia, initial encounter Disposition: Admitted As Inpatient Condition: Critical GI Bleed HPI - General Chief complaint: ED GI Bleed Stated complaint: Rectal Bleeding Time Seen by Provider: 09/23/18 18:34 Source: patient, family Limitations: no limitations Nursing Notes Reviewed: Yes Vital Signs Reviewed: Yes - History of Present Illness HPI Narrative: Patient is an 83-year-old male with history of metastatic prostate CA who presents to the emergency department with complaints of bright red blood per rectum with 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 He denies straining or trauma to the area. He states he felt that he needed to have a bowel movement but it was purely blood. He states he feels slightly lightheaded but does not have any other complaints. He denies any fever, chills, chest pain, shortness of breath, abdominal pain, hematemesis, nausea, vomiting, diarrhea. - Related Data Home Medications Medication Instructions Recorded Confirmed Aspirin Enteric Coated [Aspirin EC] 81 mg PO DAILY 01/02/17 09/23/18 Esomeprazole Magnesium [Nexium] 20 mg PO DAILY 01/02/17 09/23/18 Gabapentin [Neurontin] 600 mg PO HS 01/02/17 09/23/18 Gemfibrozil [Lopid] 600 mg PO DAILY 01/02/17 09/23/18 Isosorbide MONOnitrate (24 HR) 30 mg PO DAILY 01/02/17 09/23/18 [Imdur] Calcium Carbonate/Vitamin D3 1 each PO DAILY 12/24/17 09/23/18 [Calcium 600 + Vit D Tablet] Vitamin E Acid Succinate [Vitamin 400 units PO DAILY 12/24/17 09/23/18 E] Metoprolol [Lopressor] 25 mg PO BID 03/31/18 09/23/18 Amlodipine Besylate 10 mg PO DAILY 09/23/18 09/23/18 Esomeprazole Magnesium [Nexium] 20 mg PO DAILY 09/23/18 09/23/18 Previous Rx's Medication Instructions Recorded Ondansetron ODT [Zofran ODT] 4 mg SL Q6HR PRN #30 tab.rapdis 11/11/17 Enzalutamide [Xtandi] 80 mg PO DAILY #120 capsule 09/15/18 predniSONE [PredniSONE] 5 mg PO BID #60 tablet 09/15/18 Allergies Allergy/AdvReac Type Severity Reaction Status Date / Time No Known Allergies Allergy Verified 06/23/18 10:30 All systems ED: reviewed and negative except as stated. Review of Systems: As Per HPI Constitutional: Denies: fever, chills, weakness, weight change Eyes: Denies: eye pain, eye discharge, vision change ENT ED: Denies: epistaxis Cardiovascular: Denies: chest pain, palpitations, dyspnea on exertion, edema, syncope Respiratory: Denies: cough, dyspnea, wheezes, hemoptysis, stridor Gastrointestinal: Reports: hematochezia. Denies: abdominal pain, nausea, vomiting, diarrhea, constipation, hematemesis, melena Genitourinary: Denies: urgency, dysuria, frequency, hematuria Musculoskeletal: Denies: back pain, neck pain, arthralgia, myalgia Integumentary: Denies: rash, abrasion, lesions Neurological: Reports: weakness. Denies: headache, numbness, paresthesias, confusion, abnormal gait, vertigo Psychiatric: Denies: anxiety, depression, suicidal thoughts, homicidal thoughts, auditory hallucinations, visual hallucinations Endocrine: Denies: fatigue Past Medical History - Past Medical History Attestation: Yes The following information was validated with the patient. Source: patient, old records reviewed Medical history: Reports: cancer, CVA, hypertension, other Surgical history: Reports: angioplasty/stent, herniorrhaphy Psychiatric history: Reports: no psych history - Social History Smoking Status: Never smoker Smokeless Tobacco Status: No Alcohol use: Reports: none Drug use: Reports: none Physical Exam - General Limitations: no limitations General appearance: alert, in no apparent distress - Head Head exam: atraumatic, normocephalic - Eye Eye exam: Present: normal appearance - ENT ENT exam: normal exam, normal oropharynx - Neck Neck exam: Present: normal inspection, full ROM, trachea midline - Chest Chest inspection: Present: normal inspection, symmetric chest wall rise. Absent: tenderness - Respiratory Respiratory exam: Present: normal lung sounds bilaterally. Absent: respiratory distress, wheezes, stridor - Cardiovascular Cardiovascular exam: Present: regular rate, normal rhythm, normal heart sounds - Abdominal Exam Abdominal exam: Present: soft, Non-Tender, normal bowel sounds. Absent: distention, guarding, rebound, diminished bowel sounds - Rectal Exam Network Operations Specialist present during exam: Yes Rectal exam: Present: normal inspection, normal rectal tone, heme (+) stool (bright red blood per rectum) - Extremities Exam Extremities exam: Present: normal inspection. Absent: pedal edema - Neurological Exam Neurological exam: Present: alert, oriented X3, normal gait - Psychiatric Psychiatric exam: Present: normal affect, normal mood - Skin Skin exam: Present: warm, dry, intact, pallor Course - Reevaluation(s) Reevaluation #1: Dr. Barnes in the ED discussing case with Dr. Holm, surgeon. Time: 20:04 Vital Signs Temperature 97.8 F 09/23/18 18:34 Pulse Rate 112 09/23/18 18:34 Respiratory Rate 20 09/23/18 18:34 Blood Pressure 151/87 09/23/18 18:34 O2 Sat by Pulse Oximetry 98 09/23/18 18:34 Temperature 97.0 F L 09/23/18 20:36 Pulse Rate 79 09/23/18 20:45 Respiratory Rate 16 09/23/18 20:36 Blood Pressure 138/74 09/23/18 20:36 O2 Sat by Pulse Oximetry 93 09/23/18 20:30 Oxygen Delivery Oxygen Delivery Room Air GI Bleed - [facility] Narrative Medical decision making narrative: Patient with history of prostate cancer presenting with one hour of painless rectal bleeding. On initial presentation patient is alert and oriented and moving about the room but did have an episode in the emergency department of large volume bright red blood per rectum. Shortly thereafter he had an episode of bradycardia and hypotension as well as hypothermia. Decreased alert and became minimally responsive and was moved to the trauma bay. Patient given 3 L fluid bolus as well as 2 L of trauma blood and placed under a bear hugger with slight improvement in his mentation. Contacted endoscopy to evaluate the patient for possible emergent endoscopy. Dr. Holm was seen in the emergency department to evaluate the patient who recommends admission to ICU. Dr. Barnes Presented to the emergency department to evaluate the patient and agrees with plan for admission. Prior to discharge from the emergency department he was stable with blood pressures in the 160 systolic and heart rate in the 70s. Patient agrees with and understands course of treatment plan including plan for admission. All questions answered. - Medical Records Medical records reviewed: Yes I reviewed the patient's medical records. - Lab Data Lab results reviewed: Yes I reviewed the patient's lab results. Result diagrams: 09/23/18 18:54 09/23/18 18:54 Lab Results 09/23/18 09/23/18 09/23/18 Range/Units 18:54 18:54 18:54 WBC 8.8 (4.3-11.1) K/mcL RBC 4.35 (4.19-5.50) M/mcL Hgb 13.2 (12.9-16.9) g/dL Hct 39.4 (37.5-50.1) % MCV 90.6 (83.0-100.0) fL MCH 30.3 (28.0-33.3) pg MCHC 33.5 (31.6-35.5) g/dL RDW 14.0 (11.5-14.5) % Plt Count 277 (140-400) K/mcL MPV 11.1 (9.4-12.4) fL Immature Gran % 0.8 (0-4) % Seg Neutrophils % 54.6 % Lymphocytes % 31.6 % Monocytes % 10.9 % Eosinophils % 1.6 % Basophils % 0.5 % Neutrophils # 4.8 (1.6-8.9) K/mcL Lymphocytes # 2.8 (0.6-4.6) K/mcL Monocytes # 1.0 (0.0-1.3) K/mcL Eosinophils # 0.1 (0.0-0.6) K/mcL Basophils # 0.0 (0.0-0.2) K/mcL PT 11.2 (9.4-12.1) Seconds INR 1.0 APTT 38.2 H (26.0-36.0) Seconds Sodium 137 (136-145) mEq/L Potassium 3.8 (3.5-5.1) mEq/L Chloride 104 (98-107) mEq/L Carbon Dioxide 21 L (23-29) mEq/L BUN 15 (8-23) mg/dL Creatinine 0.85 (0.70-1.30) mg/dL Est GFR ( Amer) > 60 (> 60) Est GFR (Non-Af Amer) > 60 (> 60) BUN/Creatinine Ratio 18 (6-26) Glucose 145 H (70-105) mg/dL Calculated Osmolality 287 (280-300) Lactic Acid (0.5-2.2) mmol/L Calcium 9.4 (8.6-10.3) mg/dL Total Bilirubin 0.3 (0.3-1.0) mg/dL Direct Bilirubin 0.1 (0.0-0.2) mg/dL Indirect Bilirubin 0.2 (0.0-1.2) mg/dL AST 12 L (13-39) Units/L ALT 7 (7-52) Units/L Alkaline Phosphatase 66 (34-104) Units/L Serum Total Protein 7.1 (6.4-8.9) g/dL Albumin 4.1 (3.5-5.7) g/dL Globulin 3.0 (2.4-3.5) g/dL Albumin/Globulin Ratio 1.4 (1.1-2.2) Lipase 20 (11-82) Units/L Blood Type Antibody Screen Crossmatch 09/23/18 09/23/18 Range/Units 19:06 19:06 WBC (4.3-11.1) K/mcL RBC (4.19-5.50) M/mcL Hgb (12.9-16.9) g/dL Hct (37.5-50.1) % MCV (83.0-100.0) fL MCH (28.0-33.3) pg MCHC (31.6-35.5) g/dL RDW (11.5-14.5) % Plt Count (140-400) K/mcL MPV (9.4-12.4) fL Immature Gran % (0-4) % Seg Neutrophils % % Lymphocytes % % Monocytes % % Eosinophils % % Basophils % % Neutrophils # (1.6-8.9) K/mcL Lymphocytes # (0.6-4.6) K/mcL Monocytes # (0.0-1.3) K/mcL Eosinophils # (0.0-0.6) K/mcL Basophils # (0.0-0.2) K/mcL PT (9.4-12.1) Seconds INR APTT (26.0-36.0) Seconds Sodium (136-145) mEq/L Potassium (3.5-5.1) mEq/L Chloride (98-107) mEq/L Carbon Dioxide (23-29) mEq/L BUN (8-23) mg/dL Creatinine (0.70-1.30) mg/dL Est GFR ( Amer) (> 60) Est GFR (Non-Af Amer) (> 60) BUN/Creatinine Ratio (6-26) Glucose (70-105) mg/dL Calculated Osmolality (280-300) Lactic Acid 2.4 H (0.5-2.2) mmol/L Calcium (8.6-10.3) mg/dL Total Bilirubin (0.3-1.0) mg/dL Direct Bilirubin (0.0-0.2) mg/dL Indirect Bilirubin (0.0-1.2) mg/dL AST (13-39) Units/L ALT (7-52) Units/L Alkaline Phosphatase (34-104) Units/L Serum Total Protein (6.4-8.9) g/dL Albumin (3.5-5.7) g/dL Globulin (2.4-3.5) g/dL Albumin/Globulin Ratio (1.1-2.2) Lipase (11-82) Units/L Blood Type A NEGATIVE Antibody Screen NEGATIVE Crossmatch See Detail - EKG Data EKG attestation: Yes I reviewed and interpreted this EKG. EKG shows normal: sinus rhythm Rhythm: NSR
[2018-09-23 20:44] LABS: Alanine Aminotransferase 7 Units/L (7-52); Albumin 4.1 g/dL (3.5-5.7); Albumin/Globulin Ratio 1.4 (1.1-2.2); Alkaline Phosphatase 66 Units/L (34-104); Aspartate Amino Transferase 12 Units/L (13-39); Bilirubin,Direct 0.1 mg/dL (0.0-0.2); Bilirubin,Indirect 0.2 mg/dL (0.0-1.2); Bilirubin,Total 0.3 mg/dL (0.3-1.0); Lipase 20 Units/L (11-82); Total Protein 7.1 g/dL (6.4-8.9)
[2018-09-23] MEDS ORDERED: Acetaminophen 325 MG TABLET PO PRN (20:54)
[2018-09-23] MEDS ORDERED: Naloxone 0.4 MG/ML INJ IVP PRN (20:54)
[2018-09-23] MEDS ORDERED: *HR* Midazolam HCl 5 MG/5 ML VIAL IVP ONE ×2 (21:11→21:54)
[2018-09-23] MEDS ORDERED: *HR* FentaNYL (PF) 100 MCG/2 ML VIAL ONE (21:11)
--- NOTE | 2018-09-23 21:18 | Internal Med History&Physical ---
Date of Encounter: 09/23/18 Time of Encounter: 20:00 Internal Medicine - H&P: HPI Chief complaint: GI bleed; shock; syncope Admitted From: Emergency Dept Plans for Post Hospital Care: Home History of present illness: Mr. Garcia is an 83 year old male who presents to the ER tonight with acute lower GI bleed with gross hemorrhage. He reportedly had several bouts of GI bleeding. He actually became bradycardic, hypotensive, and had a significant loss of consciousness in the ER. He was also hypothermic. He was stabilized with rapid IV fluid infusion, trauma blood, and admitted to the ICU for ongoing care. Dr. Holm was seeing patient in the ER and requested my presence in the ER. I saw patient with Dr. Holm in the ER and we both agreed and requested an ICU bed. Dr. Holm will proceed with upper endcoscopy this evening and colonoscopy when stabilized and appropriate from a surgical/endoscopy standpoi nt. I assessed patient in the ER and discussed with patient, , and extended family members. Bleeding was abrupt in onset and has been several times today. He has never had upper or lower GI bleeding. He denies any hematemesis, vomiting, nausea, fevers, chills, or night sweats. He has metastatic prostate cancer and is going through treatment at the [facility]. He did have a colonoscopy more than 10 years ago, and it was reportedly benign other than one polyp. He does take PPI daily for severe GERD. If he misses 1 dose of his PPI, he does have significant heartburn and stomach upset. He denies any excessive NSAID use or abuse. He does have heart disease and takes a daily aspirin. He did have cardiac stents placed several years ago but he has been off Plavix for quite some time. He does not drink any alcohol and drinks minimal caffeine. He is now normothermic and vital signs are stable the present time. Of note, patient is on chronic prednisone and given his evidence of shock, we will start him on stress dose steroids for possible adrenal crisis in the setting of acute GI hemorrhage. Past Med Surg Social Fam HX - Past Medical History Attestation: Yes The following information was validated with the patient. Source: patient, old records reviewed, obtained from family Medical history: atrial fibrillation, cancer (prostate), coronary artery disease, CVA, hypertension, other Additional medical history: prostrate Psychiatric history: no psych history - Past Surgical History Surgical History: angioplasty/stent, herniorrhaphy Additional surgical history: Hernia rx x 2 - Social History Smoking Status: Never smoker Smokeless Tobacco Status: No Alcohol use: none Drug use: none Current living situation: Home, With Family Activity Level: Independent ambulation Recent Out of Country Travel Within the Last 8 Weeks: No - Family History Father Living Status: Hx Family Cardiac Disorders: Yes (HTN) Hx Family Respiratory Disorders: No Hx Family Cancer: No Hx Family GI Disorders: No Hx Family Endocrine Disorder: No Hx Family Neuromuscular Disorders: No Hx Family Neurologic Disorders: No Hx Family HEENT Disorders: No Hx Family Autoimmune Disorders: No Mother Living Status: Hx Family Cardiac Disorders: No Hx Family Respiratory Disorders: No Hx Family Cancer: Yes (leukemia) Hx Family GI Disorders: No Hx Family Endocrine Disorder: No Hx Family Neuromuscular Disorders: No Hx Family Neurologic Disorders: No Hx Family HEENT Disorders: No Hx Family Autoimmune Disorders: No Internal Medicine - H&P: Meds Aspirin Enteric Coated [Aspirin EC] 81 mg PO DAILY 01/02/17 [History] Gabapentin [Neurontin] 600 mg PO HS 01/02/17 [History] Gemfibrozil [Lopid] 600 mg PO DAILY 01/02/17 [History] Isosorbide MONOnitrate (24 HR) [Imdur] 30 mg PO DAILY 01/02/17 [History] Ondansetron ODT [Zofran ODT] 4 mg SL Q6HR PRN #30 tab.rapdis 11/11/17 [Rx] Calcium Carbonate/Vitamin D3 [Calcium 600 + Vit D Tablet] 1 each PO DAILY 12/24/17 [History] Vitamin E Acid Succinate [Vitamin E] 400 units PO DAILY 12/24/17 [History] Metoprolol [Lopressor] 25 mg PO BID 03/31/18 [History] Enzalutamide [Xtandi] 80 mg PO DAILY #120 capsule 09/15/18 [Rx] predniSONE [PredniSONE] 5 mg PO BID #60 tablet 09/15/18 [Rx] Amlodipine Besylate 10 mg PO DAILY 09/23/18 [History] Esomeprazole Magnesium [Nexium] 20 mg PO DAILY 09/23/18 [History] Allergy/AdvReac Type Severity Reaction Status Date / Time No Known Allergies Allergy Verified 06/23/18 10:30 - Constitutional Constitutional: fatigue, weakness, no chills, no fever(s) - EENT Eyes: no blurry vision, no change in vision Ears: no ear pain, no tinnitus Nose, mouth and throat: no nasal congestion, no sore throat - Cardiovascular Cardiovascular ROS IM: syncope, no chest pain, no dyspnea, no dyspnea on exertion - Respiratory Respiratory: no cough, no hemoptysis, no chest congestion, no excessive phlegm production, no change in phlegm color - Gastrointestinal Gastrointestinal: heartburn, hematochezia, nausea, no abdominal pain, no coffee ground emesis, no diarrhea, no hematemesis, no melena, no vomiting - Genitourinary Genitourinary ROS male: no dysuria, no flank pain, no hematuria - Musculoskeletal Musculoskeletal ROS IM: no arthralgias, no back pain - Integumentary Integumentary IM: no rash, no jaundice - Neurological Neurological ROS: no dizziness, no focal weakness, no frequent falls, no headache(s) - Psychiatric Psychiatric: no anxiety, no depression - Endocrine Endocrine IM: no cold intolerance, no heat intolerance, no polydipsia, no polyuria - Hematologic/Lymphatic Hematologic/Lymphatic: no easy bruising, no lymphadenopathy - Allergic/Immunologic Allergic/Immunologic: GI upset with certain foods - Constitutional Vitals: Temp Pulse Resp BP Pulse Ox 97.0 F L 80 16 137/87 100 09/23/18 20:36 09/23/18 21:00 09/23/18 21:00 09/23/18 21:00 09/23/18 21:00 General appearance: Present: cooperative, A&O X 3, pleasant, answers questions appropriately Exam: weak, pale, cool body temperature - Head Head exam: Present: atraumatic, normal inspection - Eye Eye exam: Present: EOMI, PERRL. Absent: scleral icterus Pupils: Present: normal accommodation - ENT ENT exam: Present: mucous membranes dry, normal exam, normal oropharynx - Neck Neck exam general surgery: Present: full ROM, supple. Absent: tenderness, nuchal rigidity, thyromegaly - Respiratory Respiratory exam: Present: CTAB. Absent: chest wall tenderness, rales, respiratory distress, rhonchi, wheezes - Cardiovascular Cardiovascular exam: Present: irregular rhythm, +S1, +S2. Absent: diastolic murmur, systolic murmur Additional comments: HR 80-90's, irregular, beta-blocked - GI/Abdominal GI/Abdominal exam: Present: hypoactive bowel sounds, soft, no peritoneal signs. Absent: guarding, hepatomegaly, mass, rebound, splenomegaly, tenderness - Extremities Exam Extremities exam: Present: full ROM, warm, radial pulses palpable and symmetrical. Absent: calf tenderness, joint swelling, normal capillary refill (delayed at ~ 4 seconds), pedal edema, tenderness - Back Exam Back exam: Absent: CVA tenderness (L), CVA tenderness (R) - Neurological Exam Neurological exam: Present: alert, CN II-XII intact, oriented X3, no focal deficits, strengths equal and symetr throughout - Psychiatric Psychiatric exam: Present: normal affect, normal mood - Skin Skin exam: Present: dry, intact, pallor. Absent: warm (cool body temperature upon initial exam; warm after reassessment in ICU) Internal Med - H&P Results - Labs CBC & Chem 7: 09/23/18 22:59 09/23/18 18:54 Labs: Short CBC 09/23/18 Range/Units 18:54 WBC 8.8 (4.3-11.1) K/mcL Hgb 13.2 (12.9-16.9) g/dL Hct 39.4 (37.5-50.1) % Plt Count 277 (140-400) K/mcL Neutrophils # 4.8 (1.6-8.9) K/mcL BMP 09/23/18 18:54 Sodium 137 Potassium 3.8 Chloride 104 Carbon Dioxide 21 L BUN 15 Creatinine 0.85 Glucose 145 H Calcium 9.4 Liver Function 09/23/18 Range/Units 18:54 Total Bilirubin 0.3 (0.3-1.0) mg/dL Direct Bilirubin 0.1 (0.0-0.2) mg/dL AST 12 L (13-39) Units/L ALT 7 (7-52) Units/L Alkaline Phosphatase 66 (34-104) Units/L Albumin 4.1 (3.5-5.7) g/dL - EKG Data -: EKG Interpreted by Myself - EKG Data Prior EKG available for review: no EKG comments: 09/23/18 23:25 atrial fibrillation - Assessment and plan (1) Shock Current Visit: Yes Status: Acute Assessment and plan: 1. Patient noted to have syncopal spell in ER with prolonged LOC of about 2 -3 minutes per my discussion with ER nurse. Patient was hypotensive and bradycardic with SBP < 60 and HR 40's. Episode occurred during a large bloody bowel movement. Syncope/shock may have been vasovagal, acute hemorrhagic shock, adrenal crisis, or any combination thereof. He was fluid resuscitated and received 2 units trauma blood in ER by rapid infusion with positive results. 2. Repeat H/H after PRBC reveals a drop in H/H despite PRBC transfusion. I suspect hemorrhagic shock as partial role in above presentation. 3. Monitor serial H/H, transfuse as needed. 4. UGI bleed ruled out by EGD done in ICU per Dr. Holm. 5. Colonoscopy once stabilized per Dr. Holm. 6. Stress dose steroids added for possible adrenal crisis. 7. MIV for ongoing hemodynamic support. (2) Gastrointestinal bleeding Current Visit: Yes Status: Acute Assessment and plan: 1. EGD performed in ICU ruled out UGI source. 2. Likely LGI source. 3. Plan for colonoscopy once stabilized and bowel prep completed. 4. May need bleeding scan if bleeding does not stabilize. 5. Dr. Holm consulted and performed EGD in ICU. 6. Monitor H/H and transfuse as needed as noted above. Qualifiers: GI bleed type/associated pathology: anorectal hemorrhage Qualified Code(s): K62.5 - Hemorrhage of anus and rectum (3) Lactic acidosis Current Visit: Yes Status: Acute Assessment and plan: 1. Likely due to acute GI bleed. 2. Will trend lactate. 3. Blood cultures ordered and antibiotics ordered to cover GI solomon. However, presently I do not suspect sepsis. Rather, lactic acidosis likely due to hemorrhagic shock. 4. Supportive measures in ICU. (4) Metastatic adenocarcinoma to prostate Current Visit: Yes Status: Chronic Assessment and plan: 1. Continue home meds as appropriate once able to tolerate PO meds. 2. Consult HEM/ONC if necessary; otherwise outpatient follow-up. (5) DVT prophylaxis Current Visit: Yes Status: Acute Assessment and plan: 1. EPCD's. - Time Spent With Patient Total of 55 minutes critical care time spent thus far assessing, managing, and coordinating care of patient in ICU, ER, and with Dr. Holm.
[2018-09-23 21:25] LABS: Magnesium 1.7 mg/dL (1.6-2.6)
[2018-09-23 21:26] LABS: Troponin I < 0.03 ng/mL (< 0.04)
--- NOTE | 2018-09-23 21:33 | General Surgery Consult Note ---
Date of Encounter: 09/23/18 Time of Encounter: 20:00 History of Present Illness Consult date: 09/23/18 Requesting physician: Jim Jung History of present illness: 83-year-old referred emergently for further evaluation and treatment of new ons et copious bright red rectal bleeding. Patient has a known history of metastatic prostate cancer and is on an unidentified oral antineoplastic medication. The family indicates that the patient was well up until sudden bloody bowel movement. The patient apparently passed additional rectal blood in the ER becoming acutely hypotensive with a syncopal episode lasting several minutes. Patient was aggressively hydrated and resuscitated. He became hypothermic requiring warm IV fluids and warming blanket. I was contacted for further evaluation and possible treatment of this gastrointestinal hemorrhage. At the time of my arrival to the emergency department, the patient was awake and alert and indicated that he wished to undergo intervention to the fullest degree. The patient's son and his were at bedside and breast agreement with this treatment plan Past medical history: Metastatic prostate cancer, urinary disease with history of coronary stents; history of previous stroke, hypertension Surgical history: Coronary stents, herniorrhaphy Allergies: No known drug allergies Medications: Amlodipine 10 mg by mouth daily Aspirin 81 mg by mouth daily Esomeprazole 20 mg by mouth daily Furosemide 20 mg 2 times per week Gabapentin 600 mg by mouth daily at bedtime Gemfibrozil 600 mg by mouth daily Isosorbide 30 mg by mouth daily Calcium carbonate/vitamin D3 600+ D1 by mouth daily Metoprolol 25 mg by mouth twice a day. The information regarding his medications was obtained from his chart as patient nor his family could enumerate all other meds he takes Physical examination: Age-appropriate male who appears to be in no acute distress. He is quite pale, but he is awake and appropriately responsive. 1.8 m tall, 87.8 kg, BMI 27.0 On arrival in ICU, patient was normothermic at 98.1, pulse was 80, respirations 16, blood pressure was 137/87. On 3 L/m nasal cannula SPO2 was 100% Lungs: Clear bilaterally; no obvious abdominal pain and deep inspiration Cardiac: Regular rate and did not detect any murmurs Abdomen: Soft, nontender. No appreciable intra-abdominal masses. No rebound. Bowel sounds were hypoactive Extremities: No obvious clubbing, cyanosis or edema Laboratories: White count 8.8, hemoglobin 13.2, hematocrit 39.4, platelet count 277,000 differential within normal limits PT 11.2, INR 1.0 Electrolytes within normal limits, BUN 15, creatinine 0.85 Lactic acid 2.4, magnesium 1.7, bilirubin 0.3, AST 12, ALT 7, alkaline phosphatase 66. Troponin less than 0.03. Impression: 83-year-old male presents to the emergency department with sudden onset of bright red rectal bleeding with syncopal episode. The patient was a cardiac and hypertensive during the syncopal episode but the heart rate and blood pressure returned very quickly. Patient has received 2 units of O- packed red blood cells. He has been transferred to ICU for further evaluation, monitoring, and care. Treatment plan discussed with Dr. Barnes; includes EGD tonight to exclude brisk upper GI hemorrhage. Possible colonoscopy in AM. Family is aware of these donations and is in agreement. Further recommendations to be forthcoming based on the patient's continued status and response to intervention. The EGD was discussed, risks include hemorrhage, infection, aspiration, cramping abdominal pain, bloating, and perforation. The patient is at additional risk for cardiac dysrhythmia, ID, respiratory failure requiring prolonged mechanical ventilation. Consent for EGD has been obtained. We will proceed as soon as the endoscopy team is available. Past Med Surg Social Fam HX - Past Medical History Medical history: cancer, CVA, hypertension, other Additional medical history: prostrate Psychiatric history: no psych history - Past Surgical History Surgical History: angioplasty/stent, herniorrhaphy Additional surgical history: Hernia rx x 2 - Social History Smoking Status: Never smoker Smokeless Tobacco Status: No Alcohol use: none Drug use: none - Family History Father Living Status: Hx Family Cardiac Disorders: Yes (HTN) Hx Family Respiratory Disorders: No Hx Family Cancer: No Hx Family GI Disorders: No Hx Family Endocrine Disorder: No Hx Family Neuromuscular Disorders: No Hx Family Neurologic Disorders: No Hx Family HEENT Disorders: No Hx Family Autoimmune Disorders: No Mother Living Status: Hx Family Cardiac Disorders: No Hx Family Respiratory Disorders: No Hx Family Cancer: Yes (leukemia) Hx Family GI Disorders: No Hx Family Endocrine Disorder: No Hx Family Neuromuscular Disorders: No Hx Family Neurologic Disorders: No Hx Family HEENT Disorders: No Hx Family Autoimmune Disorders: No Medications and Allergies Aspirin Enteric Coated [Aspirin EC] 81 mg PO DAILY 01/02/17 [History] Esomeprazole Magnesium [Nexium] 20 mg PO DAILY 01/02/17 [History] Gabapentin [Neurontin] 600 mg PO HS 01/02/17 [History] Gemfibrozil [Lopid] 600 mg PO DAILY 01/02/17 [History] Isosorbide MONOnitrate (24 HR) [Imdur] 30 mg PO DAILY 01/02/17 [History] Ondansetron ODT [Zofran ODT] 4 mg SL Q6HR PRN #30 tab.rapdis 11/11/17 [Rx] Calcium Carbonate/Vitamin D3 [Calcium 600 + Vit D Tablet] 1 each PO DAILY 12/24/17 [History] Vitamin E Acid Succinate [Vitamin E] 400 units PO DAILY 12/24/17 [History] Metoprolol [Lopressor] 25 mg PO BID 03/31/18 [History] Enzalutamide [Xtandi] 80 mg PO DAILY #120 capsule 09/15/18 [Rx] predniSONE [PredniSONE] 5 mg PO BID #60 tablet 09/15/18 [Rx] Amlodipine Besylate 10 mg PO DAILY 09/23/18 [History] Esomeprazole Magnesium [Nexium] 20 mg PO DAILY 09/23/18 [History] Allergy/AdvReac Type Severity Reaction Status Date / Time No Known Allergies Allergy Verified 06/23/18 10:30 Review of Systems All systems PM: The remainder of the systems were reviewed and are negative General Surgery Exam Initial Vital Signs Temp Pulse Resp BP Pulse Ox 97.8 F 112 20 151/87 98 09/23/18 18:34 09/23/18 18:34 09/23/18 18:34 09/23/18 18:34 09/23/18 18:34 Exam Initial Vital Signs Temp Pulse Resp BP Pulse Ox 97.8 F 112 20 151/87 98 09/23/18 18:34 09/23/18 18:34 09/23/18 18:34 09/23/18 18:34 09/23/18 18:34 Results - Labs 09/23/18 18:54 09/23/18 18:54 Abnormal lab results APTT 38.2 Seconds (26.0-36.0) H 09/23/18 18:54 Carbon Dioxide 21 mEq/L (23-29) L 09/23/18 18:54 Glucose 145 mg/dL (70-105) H 09/23/18 18:54 Lactic Acid 2.4 mmol/L (0.5-2.2) H 09/23/18 19:06 AST 12 Units/L (13-39) L 09/23/18 18:54 Diabetes panel 09/23/18 Range/Units 18:54 Sodium 137 (136-145) mEq/L Potassium 3.8 (3.5-5.1) mEq/L Chloride 104 (98-107) mEq/L Carbon Dioxide 21 L (23-29) mEq/L BUN 15 (8-23) mg/dL Creatinine 0.85 (0.70-1.30) mg/dL Glucose 145 H (70-105) mg/dL Calcium 9.4 (8.6-10.3) mg/dL AST 12 L (13-39) Units/L ALT 7 (7-52) Units/L Alkaline Phosphatase 66 (34-104) Units/L Albumin 4.1 (3.5-5.7) g/dL Calcium panel 09/23/18 Range/Units 18:54 Calcium 9.4 (8.6-10.3) mg/dL Albumin 4.1 (3.5-5.7) g/dL Pituitary panel 09/23/18 Range/Units 18:54 Sodium 137 (136-145) mEq/L Potassium 3.8 (3.5-5.1) mEq/L Chloride 104 (98-107) mEq/L Carbon Dioxide 21 L (23-29) mEq/L BUN 15 (8-23) mg/dL Creatinine 0.85 (0.70-1.30) mg/dL Glucose 145 H (70-105) mg/dL Calcium 9.4 (8.6-10.3) mg/dL Adrenal panel 09/23/18 Range/Units 18:54 Sodium 137 (136-145) mEq/L Potassium 3.8 (3.5-5.1) mEq/L Chloride 104 (98-107) mEq/L Carbon Dioxide 21 L (23-29) mEq/L BUN 15 (8-23) mg/dL Creatinine 0.85 (0.70-1.30) mg/dL Glucose 145 H (70-105) mg/dL Calcium 9.4 (8.6-10.3) mg/dL Total Bilirubin 0.3 (0.3-1.0) mg/dL AST 12 L (13-39) Units/L ALT 7 (7-52) Units/L Alkaline Phosphatase 66 (34-104) Units/L Albumin 4.1 (3.5-5.7) g/dL All other labs normal. Consult Discharge Plan - Plan Referrals: Una Pascal, PRIMO [Primary Care Provider] -
[2018-09-23 21:39] LABS: Thyroid Stimulating Hormone 2.878 mcIU/mL (0.340-5.600)
[2018-09-23] MEDS: Hydrocortisone Sodium Succ 100 MG/2 ML VIAL IVP SCH (21:53)
[2018-09-23] MEDS ORDERED: *HR* FentaNYL (PF) 100 MCG/2 ML VIAL IVP ONE (21:54)
[2018-09-23] MEDS ORDERED: Simethicone 40 MG/0.6 ML MLS IR ONE (21:54)
[2018-09-23] MEDS ORDERED: Tetracaine/Benzocaine/Butamben 1 SPRAY AEROSOL MM ONE (21:54)
[2018-09-23 23:09] LABS: Hematocrit 38.4 % (37.5-50.1); Hemoglobin 12.5 g/dL (12.9-16.9)
[2018-09-24] MEDS: 0.9 % Sodium Chloride w KCl 20 MEQ/1,000 ML MLS IVC SCH ×3 (00:14→20:46)
[2018-09-24] MEDS: Hydrocortisone Sodium Succ 100 MG/2 ML VIAL IVP SCH ×2 (00:15→06:05)
[2018-09-24] MEDS: Piperacillin/Tazobactam 3.375 GM in 0.9 % Sodium Chloride Mini Bag 100 ML IVPB SCH ×2 (00:15→08:40)
[2018-09-24] MEDS: MetroNIDAZOLE 500 MG/100 ML 500 MG/100 ML BAG IVPB SCH ×2 (00:15→08:48)
[2018-09-24 05:31] LABS: Hematocrit 34.4 % (37.5-50.1); Hemoglobin 11.7 g/dL (12.9-16.9)
[2018-09-24] MEDS ORDERED: Pantoprazole 40 MG VIAL IVP SCH (06:00)
[2018-09-24] MEDS ORDERED: Enzalutamide [Xtandi] 80 MG PO SCH (09:00)
--- NOTE | 2018-09-24 09:06 | Urology - Consult Note ---
Date of Encounter: 09/24/18 Time of Encounter: 08:29 - Assessment and Plan (1) Gross hematuria Current Visit: Yes Status: Acute Assessment and plan: I recommend keeping the cath out as long as patient is voiding well. hopefully the urine will continue to clear without intervention. I initially thought this patient has received pelvic radiation for the prostate cancer but reviewing his hx I cant confirm this. will need to question the patient for confirmation. If he did receive radiation it may be causing his hematuria and GI bleed. If he has not received radiation the hematuria is potentially from recurrent prostate cancer growth in the urethra/bladder. could consider cystoscopy as an outpatient but he has been resistant to this in the past (has hx of recurrent hematuria). will review imaging if performed. will continue to follow patient. Urology CN:HPI Consult date: 09/24/18 Reason for consult Urology: Gross Hematuria History of present illness: patient known to the urology service. First seen in 2010 and underwent channel greenlight for retention. distant hx of metastatic prostate cancer with abandoned radical prostatectomy bc of +LN. has been on furniture technician androgen ablation and now followed by ONC. I initially thought he had radiation therapy but I do not see it in his history. PSA 8 currently admitted with rectal bleeding. cath was in place and increased hematuria with large blood clot. cath removed and pt started urinating "clearing" urine without difficulty. no imaging completed at time of evaluation. Past Med Surg Social Fam HX - Past Medical History Medical history: atrial fibrillation, cancer (prostate), coronary artery disease, CVA, hypertension, other Additional medical history: prostrate Psychiatric history: no psych history - Past Surgical History Surgical History: angioplasty/stent, herniorrhaphy Additional surgical history: Hernia rx x 2 - Social History Smoking Status: Never smoker Smokeless Tobacco Status: No Alcohol use: none Drug use: none - Family History Father Living Status: Hx Family Cardiac Disorders: Yes (HTN) Hx Family Respiratory Disorders: No Hx Family Cancer: No Hx Family GI Disorders: No Hx Family Endocrine Disorder: No Hx Family Neuromuscular Disorders: No Hx Family Neurologic Disorders: No Hx Family HEENT Disorders: No Hx Family Autoimmune Disorders: No Mother Living Status: Hx Family Cardiac Disorders: No Hx Family Respiratory Disorders: No Hx Family Cancer: Yes (leukemia) Hx Family GI Disorders: No Hx Family Endocrine Disorder: No Hx Family Neuromuscular Disorders: No Hx Family Neurologic Disorders: No Hx Family HEENT Disorders: No Hx Family Autoimmune Disorders: No Medications and Allergies Aspirin Enteric Coated [Aspirin EC] 81 mg PO DAILY 01/02/17 [History] Gabapentin [Neurontin] 600 mg PO HS 01/02/17 [History] Gemfibrozil [Lopid] 600 mg PO DAILY 01/02/17 [History] Isosorbide MONOnitrate (24 HR) [Imdur] 30 mg PO DAILY 01/02/17 [History] Ondansetron ODT [Zofran ODT] 4 mg SL Q6HR PRN #30 tab.rapdis 11/11/17 [Rx] Calcium Carbonate/Vitamin D3 [Calcium 600 + Vit D Tablet] 1 each PO DAILY 12/24/17 [History] Vitamin E Acid Succinate [Vitamin E] 400 units PO DAILY 12/24/17 [History] Metoprolol [Lopressor] 25 mg PO BID 03/31/18 [History] Enzalutamide [Xtandi] 80 mg PO DAILY #120 capsule 09/15/18 [Rx] predniSONE [PredniSONE] 5 mg PO BID #60 tablet 09/15/18 [Rx] Amlodipine Besylate 10 mg PO DAILY 09/23/18 [History] Esomeprazole Magnesium [Nexium] 20 mg PO DAILY 09/23/18 [History] Allergy/AdvReac Type Severity Reaction Status Date / Time No Known Allergies Allergy Verified 06/23/18 10:30 Review of Systems ROS unobtainable: other (pt asleep and not awoken) Exam Initial Vital Signs Temp Pulse Resp BP Pulse Ox 97.8 F 112 20 151/87 98 09/23/18 18:34 09/23/18 18:34 09/23/18 18:34 09/23/18 18:34 09/23/18 18:34 - General physical appearance Present: no distress - ENT Present: normal nares - Neck Present: no masses - Respiratory Present: normal respiratory effort - Abdomen Abdomen: Present: soft - Additional Findings voided urine transparent hematuria. Urology Results - Labs 09/24/18 04:43 09/23/18 18:54 Abnormal lab results Hgb 11.7 g/dL (12.9-16.9) L 09/24/18 04:43 Hct 34.4 % (37.5-50.1) L 09/24/18 04:43 APTT 38.2 Seconds (26.0-36.0) H 09/23/18 18:54 Carbon Dioxide 21 mEq/L (23-29) L 09/23/18 18:54 Glucose 145 mg/dL (70-105) H 09/23/18 18:54 POC Glucose 118 mg/dL (70-99) H 09/23/18 20:35 AST 12 Units/L (13-39) L 09/23/18 18:54 Diabetes panel 09/23/18 Range/Units 18:54 Sodium 137 (136-145) mEq/L Potassium 3.8 (3.5-5.1) mEq/L Chloride 104 (98-107) mEq/L Carbon Dioxide 21 L (23-29) mEq/L BUN 15 (8-23) mg/dL Creatinine 0.85 (0.70-1.30) mg/dL Glucose 145 H (70-105) mg/dL Calcium 9.4 (8.6-10.3) mg/dL AST 12 L (13-39) Units/L ALT 7 (7-52) Units/L Alkaline Phosphatase 66 (34-104) Units/L Albumin 4.1 (3.5-5.7) g/dL Thyroid panel 09/23/18 Range/Units 20:50 TSH 2.878 (0.340-5.600) mcIU/mL Calcium panel 09/23/18 Range/Units 18:54 Calcium 9.4 (8.6-10.3) mg/dL Albumin 4.1 (3.5-5.7) g/dL Pituitary panel 09/23/18 09/23/18 Range/Units 18:54 20:50 Sodium 137 (136-145) mEq/L Potassium 3.8 (3.5-5.1) mEq/L Chloride 104 (98-107) mEq/L Carbon Dioxide 21 L (23-29) mEq/L BUN 15 (8-23) mg/dL Creatinine 0.85 (0.70-1.30) mg/dL Glucose 145 H (70-105) mg/dL Calcium 9.4 (8.6-10.3) mg/dL TSH 2.878 (0.340-5.600) mcIU/mL Adrenal panel 09/23/18 Range/Units 18:54 Sodium 137 (136-145) mEq/L Potassium 3.8 (3.5-5.1) mEq/L Chloride 104 (98-107) mEq/L Carbon Dioxide 21 L (23-29) mEq/L BUN 15 (8-23) mg/dL Creatinine 0.85 (0.70-1.30) mg/dL Glucose 145 H (70-105) mg/dL Calcium 9.4 (8.6-10.3) mg/dL Total Bilirubin 0.3 (0.3-1.0) mg/dL AST 12 L (13-39) Units/L ALT 7 (7-52) Units/L Alkaline Phosphatase 66 (34-104) Units/L Albumin 4.1 (3.5-5.7) g/dL All other labs normal. Consult Discharge Plan - Plan Referrals: Una Pascal, PRIMO [Primary Care Provider] -
[2018-09-24] MEDS ORDERED: Saline Nasal Spray 44 ML BOTTLE NS PRN (09:54)
--- NOTE | 2018-09-24 11:08 | Pulmonology Consult Note ---
<Kathy Taylor M - Last Filed: 09/24/18 15:46> Date of Encounter: 09/24/18 Medications and Allergies Aspirin Enteric Coated [Aspirin EC] 81 mg PO DAILY 01/02/17 [History] Gabapentin [Neurontin] 600 mg PO HS 01/02/17 [History] Gemfibrozil [Lopid] 600 mg PO DAILY 01/02/17 [History] Isosorbide MONOnitrate (24 HR) [Imdur] 30 mg PO DAILY 01/02/17 [History] Ondansetron ODT [Zofran ODT] 4 mg SL Q6HR PRN #30 tab.rapdis 11/11/17 [Rx] Calcium Carbonate/Vitamin D3 [Calcium 600 + Vit D Tablet] 1 each PO DAILY [History] Vitamin E Acid Succinate [Vitamin E] 400 units PO DAILY 12/24/17 [History] Metoprolol [Lopressor] 25 mg PO BID 03/31/18 [History] Enzalutamide [Xtandi] 80 mg PO DAILY #120 capsule 09/15/18 [Rx] predniSONE [PredniSONE] 5 mg PO BID #60 tablet 09/15/18 [Rx] Amlodipine Besylate 10 mg PO DAILY 09/23/18 [History] Esomeprazole Magnesium [Nexium] 20 mg PO DAILY 09/23/18 [History] Furosemide [Lasix] 20 mg PO 2XW PRN 09/24/18 [History] Lisinopril 2.5 mg PO DAILY 09/24/18 [History] Allergy/AdvReac Type Severity Reaction Status Date / Time No Known Allergies Allergy Verified 06/23/18 10:30 All Systems: The remainder of the systems were reviewed and are negative Physical Examination Vital Signs: Vital Signs, Last 4 Hours Pulse Resp BP Pulse Ox 09/24/18 15:00 74 14 169/96 98 09/24/18 14:00 70 16 156/90 98 09/24/18 13:00 68 18 146/98 98 09/24/18 12:00 81 20 144/95 98 Results - Laboratory Findings CBC and BMP: 09/24/18 10:57 09/23/18 18:54 PT/INR, D-dimer PT 11.2 Seconds (9.4-12.1) 09/23/18 18:54 Abnormal lab findings: Abnormal lab results Hgb 12.0 g/dL (12.9-16.9) L 09/24/18 10:57 Hct 34.8 % (37.5-50.1) L 09/24/18 10:57 APTT 38.2 Seconds (26.0-36.0) H 09/23/18 18:54 Carbon Dioxide 21 mEq/L (23-29) L 09/23/18 18:54 Glucose 145 mg/dL (70-105) H 09/23/18 18:54 POC Glucose 118 mg/dL (70-99) H 09/23/18 20:35 AST 12 Units/L (13-39) L 09/23/18 18:54 - Microbiology Findings Microbiology Findings: Microbiology, Last 48 Hours 09/23/18 20:51 Blood Culture - Preliminary Peripheral Venipuncture Culture is incubating and being continuously monitored for growth. Final report to follow. 09/23/18 20:50 Blood Culture - Preliminary Peripheral Venipuncture Culture is incubating and being continuously monitored for growth. Final report to follow. - Clinical Findings Intake & Output: Intake & Output 09/23/18 09/24/18 09/24/18 23:59 07:59 15:59 Intake Total 1400 / 1400 200 / 200 1100 / 1100 Output Total 450 / 450 875 / 875 250 / 250 Balance 950 / 950 -675 / -675 850 / 850 Weight 87.8 kg 87.8 kg Consult Discharge Plan - Plan Referrals: Una Pascal, CAR PORTER [Primary Care Provider] - - Attending Attestation I examined this patient and my medical decision-making was reviewed with the Resident Physician. I agree with the documented findings, disposition and treatment plan as described except to the extent set forth below. Patient seen and examined. Labs, radiology, chart personally reviewed. Agree with resident's history and physical, assessment, plan with following comments: ALUMINUM SHINGLE ROOFER: Patient follows commands, Pulmonary: Acceptable oxygenation and ventilation Cardiovascular: stable GI: Nutrition per dietary and GI prophylaxis per routine. Patient does not have any evidence of acute GI bleed at this time and it could be lower GI that would require colonoscopy for evaluation and Dr. Holm is following up. Heme: DVT prophylaxis per routine. Mechanical due to GI bleed ID: Continue antibiotics and plan to de-escalation. A doubt there is any infection and the antibiotics can be stopped Renal; urine out put and renal funtion reviewed. Urology has seen the patient. Endorcine: blood glucose is monitored Lines: all lines checked and no evidence of infections Skin: skin care to prevent pressure ulcers per nursing routine care Patient hemodynamically stable and can be transferred to the floor as long as his H&H remained stable and thank you for consultation. <Delvis Max - Last Filed: 09/24/18 17:41> Date of Encounter: 09/24/18 Time of Encounter: 11:08 Assessment and Plan (1) Gastrointestinal bleeding Current Visit: Yes Status: Acute EGD found esophagitis and residual blood in the stomach Hemoglobins 13.2-12.5-11.7-12.0-11.6 Received 2 transfusions of RBC Patient does not have any evidence of acute GI bleed at this time and it could be lower GI that would require colonoscopy for evaluation and Dr. Holm is following up continue to monitor H&H Patient hemodynamically stable and can be transferred to the floor as long as his H&H remained stable and thank you for consultation. accepted by Dr. Crawford Qualifiers: GI bleed type/associated pathology: anorectal hemorrhage Qualified Code(s): K62.5 - Hemorrhage of anus and rectum (2) Lactic acidosis Current Visit: Yes Status: Acute likley due to GI bleed hemorrhagic shock resolved (3) Metastatic adenocarcinoma to prostate Current Visit: Yes Status: Chronic Continue home meds as appropriate once able to tolerate PO meds. Consult HEM/ONC if necessary; otherwise outpatient follow-up. (4) Gross hematuria Current Visit: Yes Status: Acute Gross hematuria noted could be due to radiation but history is uncertain (5) DVT prophylaxis Current Visit: Yes Status: Acute EPCDs History of Present Illness Consult date: 09/24/18 Requesting physician: Jabari Holm Chief complaint: GI bleed History of present illness: Mr. Garcia is an 83 year old male who presented to the ER with acute lower GI bleed with gross hemorrhage. He reportedly had several bouts of GI bleeding. He actually became bradycardic, hypotensive, and had a significant loss of consciousness in the ER. He was also hypothermic. He was stabilized with rapid IV fluid infusion, trauma blood, and admitted to the ICU for ongoing care. Dr. Holm was seeing patient in the ER and requested my presence in the ER. I saw patient with Dr. Holm in the ER and we both agreed and requested an ICU bed. Dr. Holm performed a upper endoscopy showing gastritis. Past Med Surg Social Fam HX - Past Medical History Medical history: atrial fibrillation, cancer (prostate), coronary artery disease, CVA, hypertension, other Additional medical history: prostrate Psychiatric history: no psych history - Past Surgical History Surgical History: angioplasty/stent, herniorrhaphy Additional surgical history: Hernia rx x 2 - Social History Smoking Status: Never smoker Smokeless Tobacco Status: No Alcohol use: none Drug use: none - Family History Father Living Status: Hx Family Cardiac Disorders: Yes (HTN) Hx Family Respiratory Disorders: No Hx Family Cancer: No Hx Family GI Disorders: No Hx Family Endocrine Disorder: No Hx Family Neuromuscular Disorders: No Hx Family Neurologic Disorders: No Hx Family HEENT Disorders: No Hx Family Autoimmune Disorders: No Mother Living Status: Hx Family Cardiac Disorders: No Hx Family Respiratory Disorders: No Hx Family Cancer: Yes (leukemia) Hx Family GI Disorders: No Hx Family Endocrine Disorder: No Hx Family Neuromuscular Disorders: No Hx Family Neurologic Disorders: No Hx Family HEENT Disorders: No Hx Family Autoimmune Disorders: No All Systems: The remainder of the systems were reviewed and are negative - Constitutional Constitutional: as per HPI - Cardiovascular Cardiovascular: no chest pain - Respiratory Respiratory: no cough - Gastrointestinal Gastrointestinal: as per HPI - Genitourinary Genitourinary: as per HPI Physical Examination Vital Signs: Vital Signs, Last 4 Hours Temp Pulse Resp BP Pulse Ox 09/24/18 10:00 77 18 154/100 98 09/24/18 09:00 88 16 167/101 98 09/24/18 08:00 98.1 F 89 12 148/91 96 General appearance: no acute distress Eyes: nonicteric ENT: oropharynx moist Auscultation: bilateral: clear Cardiovascular: regular rate and rhythm Gastrointestinal: normoactive bowel sounds, tender Results - Laboratory Findings CBC and BMP: 09/24/18 16:47 09/23/18 18:54 PT/INR, D-dimer PT 11.2 Seconds (9.4-12.1) 09/23/18 18:54 Abnormal lab findings: Abnormal lab results Hgb 11.7 g/dL (12.9-16.9) L 09/24/18 04:43 Hct 34.4 % (37.5-50.1) L 09/24/18 04:43 APTT 38.2 Seconds (26.0-36.0) H 09/23/18 18:54 Carbon Dioxide 21 mEq/L (23-29) L 09/23/18 18:54 Glucose 145 mg/dL (70-105) H 09/23/18 18:54 POC Glucose 118 mg/dL (70-99) H 09/23/18 20:35 AST 12 Units/L (13-39) L 09/23/18 18:54 - Microbiology Findings Microbiology Findings: Microbiology, Last 48 Hours 09/23/18 20:51 Blood Culture - Preliminary Peripheral Venipuncture Culture is incubating and being continuously monitored for growth. Final report to follow. 09/23/18 20:50 Blood Culture - Preliminary Peripheral Venipuncture Culture is incubating and being continuously monitored for growth. Final report to follow. - Clinical Findings Intake & Output: Intake & Output 09/23/18 09/24/18 09/24/18 23:59 07:59 15:59 Intake Total 1400 / 1400 200 / 200 1100 / 1100 Output Total 450 / 450 875 / 875 250 / 250 Balance 950 / 950 -675 / -675 850 / 850 Weight 87.8 kg 87.8 kg
[2018-09-24 11:21] LABS: Hematocrit 34.8 % (37.5-50.1)
[2018-09-24 17:00] LABS: Hematocrit 34.8 % (37.5-50.1); Hemoglobin 11.6 g/dL (12.9-16.9)
[2018-09-24] MEDS: Enzalutamide [Xtandi] 80 MG PO SCH (17:44)
--- NOTE | 2018-09-24 18:57 | General Surgery Progress Note ---
Date of Encounter: 09/24/18 Time of Encounter: 18:50 Subjective Patient reports: feels better Narrative: General Surgery - GIB Patient appears well, hemodynamically stabilized. No further rectal bleeding. Hemoglobin stable 11.7 (04:43); 12.0, (10:57); 11.6 (16:47) Patient appears to be awake and alert; hemodynamically stable with pulse 67, respirations 16, blood pressure ranging from 153/89-174/103. Abdomen: Soft, nontender. Lengthy discussion with the patient, his , and family. EGD from last evening was reviewed. There were no significant findings in the upper GI tract other than likely distal esophagitis. No upper GI source for the patient's right red blood per rectum were identified. Treatment options include continued expectant follow-up versus colonoscopy. Colonoscopy requires mechanical bowel prep and carries with it the risk of hemorrhage, infection, cramping abdominal pain, and perforation. The risk of expectant follow-up include recurrent GI hemorrhage. The patient and his family have reached a consensus to defer colonoscopy for the time being. It appears that topic will be revisited tomorrow when I return to the patient's bedside in follow-up of this patient's apparent lower GI bleed. Impression: Lower gastrointestinal hemorrhage, most likely diverticular Patient is currently stable with no evidence of recurrent bleeding Per his wishes, continue expectant follow-up for the time being Plan: Allow clear liquids; continue to monitor for evidence recurrent GI hemorrhage If recurrent GI bleed, consider RBC tagged bleeding scan followed by angiogram with possible embolization if the source can be identified Surgery was discussed but considered high risk for this elderly patient with multiple comorbidities including metastatic prostate cancer Objective Vital Signs - Last 8 Hours Temp Pulse Resp BP Pulse Ox 09/24/18 18:00 67 16 174/103 98 09/24/18 17:00 69 16 153/89 98 09/24/18 16:00 70 16 164/95 98 09/24/18 15:00 74 14 169/96 98 09/24/18 14:00 70 16 156/90 98 09/24/18 13:00 68 18 146/98 98 09/24/18 12:00 81 20 144/95 98 09/24/18 11:00 98.0 F 89 16 160/99 97 Intake and Output 09/24/18 09/24/18 09/24/18 07:59 15:59 23:59 Intake Total 200 / 200 1200 / 1200 100 / 100 Output Total 875 / 875 250 / 250 250 / 250 Balance -675 / -675 950 / 950 -150 / -150 Intake: IV Fluids 200 / 200 1200 / 1200 KCl 20 mEq in 0.9% Sodium 1000 / 1000 Chloride 20 meq In 1,000 ml @ 100 mls/hr IVC .Q10H [facility] Rx#: [id number] Flagyl Premix 500 MG/100 ML 500 100 / 100 100 / 100 mg In 100 ml @ 100 mls/hr IVPB Q8HR [facility] Rx#:[id number] Zosyn 3.375 GM In 0.9 % Sodium 100 / 100 100 / 100 Chloride (Mini-Bag +) 100 ML @ 25 mls/hr IVPB Q8HR [facility] Rx#: [id number] Oral 100 / 100 Output: Urine 875 / 875 250 / 250 250 / 250 Other: Stool Size Small Stool Consistency liquid Stool Color Blood Tinged # Bowel Movements 2 Weight 87.8 kg Patient Weight 09/24/18 23:59 Weight 87.8 kg - Labs 09/24/18 16:47 09/23/18 18:54 Diabetes panel 09/23/18 Range/Units 18:54 Sodium 137 (136-145) mEq/L Potassium 3.8 (3.5-5.1) mEq/L Chloride 104 (98-107) mEq/L Carbon Dioxide 21 L (23-29) mEq/L BUN 15 (8-23) mg/dL Creatinine 0.85 (0.70-1.30) mg/dL Glucose 145 H (70-105) mg/dL Calcium 9.4 (8.6-10.3) mg/dL AST 12 L (13-39) Units/L ALT 7 (7-52) Units/L Alkaline Phosphatase 66 (34-104) Units/L Albumin 4.1 (3.5-5.7) g/dL Thyroid panel 09/23/18 Range/Units 20:50 TSH 2.878 (0.340-5.600) mcIU/mL Calcium panel 09/23/18 Range/Units 18:54 Calcium 9.4 (8.6-10.3) mg/dL Albumin 4.1 (3.5-5.7) g/dL Pituitary panel 09/23/18 09/23/18 Range/Units 18:54 20:50 Sodium 137 (136-145) mEq/L Potassium 3.8 (3.5-5.1) mEq/L Chloride 104 (98-107) mEq/L Carbon Dioxide 21 L (23-29) mEq/L BUN 15 (8-23) mg/dL Creatinine 0.85 (0.70-1.30) mg/dL Glucose 145 H (70-105) mg/dL Calcium 9.4 (8.6-10.3) mg/dL TSH 2.878 (0.340-5.600) mcIU/mL Adrenal panel 09/23/18 Range/Units 18:54 Sodium 137 (136-145) mEq/L Potassium 3.8 (3.5-5.1) mEq/L Chloride 104 (98-107) mEq/L Carbon Dioxide 21 L (23-29) mEq/L BUN 15 (8-23) mg/dL Creatinine 0.85 (0.70-1.30) mg/dL Glucose 145 H (70-105) mg/dL Calcium 9.4 (8.6-10.3) mg/dL Total Bilirubin 0.3 (0.3-1.0) mg/dL AST 12 L (13-39) Units/L ALT 7 (7-52) Units/L Alkaline Phosphatase 66 (34-104) Units/L Albumin 4.1 (3.5-5.7) g/dL Consult Discharge Plan - Plan Referrals: Una Pascal, PRIMO [Primary Care Provider] -
[2018-09-24] MEDS ORDERED: Gabapentin 300 MG CAPSULE PO SCH (21:00)
[2018-09-25 04:52] LABS: Basophils % 0.5 %; Eosinophils # 0.3 K/mcL (0.0-0.6); Eosinophils % 3.6 %; Hematocrit 35.7 % (37.5-50.1); Hemoglobin 11.9 g/dL (12.9-16.9); Immature Granulocytes % 0.5 % (0-4); Lymphocytes # 2.2 K/mcL (0.6-4.6); Lymphocytes % 29.6 %; Mean Corpuscular HGB Conc 33.3 g/dL (31.6-35.5); Mean Corpuscular Hemoglobin 30.5 pg (28.0-33.3); Mean Corpuscular Volume 91.5 fL (83.0-100.0); Mean Platelet Volume 11.2 fL (9.4-12.4); Monocytes # 0.8 K/mcL (0.0-1.3); Monocytes % 10.4 %; Platelet Count 192 K/mcL (140-400); Red Cell Distribution Width 14.5 % (11.5-14.5); Segmented Neutrophils % 55.4 %
[2018-09-25 05:24] LABS: Alanine Aminotransferase 13 Units/L (7-52); Albumin 3.2 g/dL (3.5-5.7); Albumin/Globulin Ratio 1.3 (1.1-2.2); Alkaline Phosphatase 47 Units/L (34-104); Aspartate Amino Transferase 21 Units/L (13-39); BUN/Creatinine Ratio 16 (6-26); Bilirubin,Total 0.5 mg/dL (0.3-1.0); Blood Urea Nitrogen 8 mg/dL (8-23); Calcium 7.4 mg/dL (8.6-10.3); Carbon Dioxide 19 mEq/L (23-29); Chloride 114 mEq/L (98-107); Globulin 2.5 g/dL (2.4-3.5); Glucose 84 mg/dL (70-105); Magnesium 1.7 mg/dL (1.6-2.6); Osmolality,Calculated 290 (280-300); Phosphorous 1.3 mg/dL (2.7-4.5); Potassium 3.7 mEq/L (3.5-5.1); Sodium 141 mEq/L (136-145); Total Protein 5.7 g/dL (6.4-8.9); eGFR For Non-African Americans > 60 (> 60)
[2018-09-25] MEDS: 0.9 % Sodium Chloride w KCl 20 MEQ/1,000 ML MLS IVC SCH (06:25)
[2018-09-25] MEDS ORDERED: Pantoprazole 40 MG VIAL IVP SCH (09:00)
--- NOTE | 2018-09-25 09:15 | Urology Progress Note ---
Date of Encounter: 09/25/18 Time of Encounter: 09:13 - Assessment and Plan (1) Gross hematuria Current Visit: Yes Status: Resolved Assessment and plan: After further discussion the patient was treated with radiation therapy after the radical prostatectomy was abandoned. 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 In addition his CT scan shows what is likely prostate cancer regrowth near the bladder neck. No surgical intervention is required as he has known metastatic disease which is being treated by oncology. The prostate cancer growth around the bladder neck may also be accounting for his hematuria. No further urologic intervention. Please call if any new issues. May need to consider radiation proctitis as a source of GI bleeding Progress Note Narrative: voided urine is clear. Objective Initial Vital Signs Temp Pulse Resp BP Pulse Ox 97.8 F 112 20 151/87 98 09/23/18 18:34 09/23/18 18:34 09/23/18 18:34 09/23/18 18:34 09/23/18 18:34 - General physical appearance Present: well developed, no distress - Additional Exam voided urine completely clear. - Labs 09/25/18 04:24 09/25/18 04:24 Diabetes panel 09/25/18 Range/Units 04:24 Sodium 141 (136-145) mEq/L Potassium 3.7 (3.5-5.1) mEq/L Chloride 114 H (98-107) mEq/L Carbon Dioxide 19 L (23-29) mEq/L BUN 8 (8-23) mg/dL Creatinine 0.50 L (0.70-1.30) mg/dL Glucose 84 (70-105) mg/dL Calcium 7.4 L (8.6-10.3) mg/dL AST 21 (13-39) Units/L ALT 13 (7-52) Units/L Alkaline Phosphatase 47 (34-104) Units/L Albumin 3.2 L (3.5-5.7) g/dL Calcium panel 09/25/18 Range/Units 04:24 Calcium 7.4 L (8.6-10.3) mg/dL Phosphorus 1.3 L (2.7-4.5) mg/dL Albumin 3.2 L (3.5-5.7) g/dL Pituitary panel 09/25/18 Range/Units 04:24 Sodium 141 (136-145) mEq/L Potassium 3.7 (3.5-5.1) mEq/L Chloride 114 H (98-107) mEq/L Carbon Dioxide 19 L (23-29) mEq/L BUN 8 (8-23) mg/dL Creatinine 0.50 L (0.70-1.30) mg/dL Glucose 84 (70-105) mg/dL Calcium 7.4 L (8.6-10.3) mg/dL Adrenal panel 09/25/18 Range/Units 04:24 Sodium 141 (136-145) mEq/L Potassium 3.7 (3.5-5.1) mEq/L Chloride 114 H (98-107) mEq/L Carbon Dioxide 19 L (23-29) mEq/L BUN 8 (8-23) mg/dL Creatinine 0.50 L (0.70-1.30) mg/dL Glucose 84 (70-105) mg/dL Calcium 7.4 L (8.6-10.3) mg/dL Total Bilirubin 0.5 (0.3-1.0) mg/dL AST 21 (13-39) Units/L ALT 13 (7-52) Units/L Alkaline Phosphatase 47 (34-104) Units/L Albumin 3.2 L (3.5-5.7) g/dL Consult Discharge Plan - Plan Referrals: Una Pascal, PRIMO [Primary Care Provider] -
--- NOTE | 2018-09-25 12:48 | General Surgery Progress Note ---
Date of Encounter: 09/25/18 Time of Encounter: 12:42 Subjective Patient reports: no new complaints Narrative: General Surgery - GIB Patient looks well, voicing no complaints. No evidence of recurrent gastrointestinal hemorrhage. Patient tolerating clear liquids. Will advance to full liquids. Patient remains afebrile, currently 97.6, hemodynamically stable - pulse 70- 91, respirations 18, blood pressure currently 168/100 (previously 149/88) Lungs: Clear abdomen: Soft nontender. Labs: White count 7.3, hemoglobin stable at 11.9 with hematocrit 35.7. Impression: A 83-year-old male with most likely lower gastrointestinal hemorrhage, suspected to be diverticular No recurrent bleeding; H&H stable EGD was unremarkable Patient does not wish to undergo colonoscopy at this time. Recommendations: If the patient remains stable without evidence of recurrent GI hemorrhage, may advance diet, resume all home oral medications Recommend against any VTE prophylaxis and would consider avoidance aspirin, clopidogrel etc. The discontinuation of aspirin should be discussed with Cardiology as patient has history coronary stents. Objective Vital Signs - Last 8 Hours Temp Pulse Resp BP Pulse Ox 09/25/18 11:00 70 18 168/100 98 09/25/18 09:00 77 18 149/88 98 09/25/18 08:00 91 18 152/94 98 09/25/18 07:00 97.6 F 64 16 165/106 99 09/25/18 06:00 60 18 132/72 96 09/25/18 05:00 60 18 158/101 97 09/25/18 04:43 97.9 F Intake and Output 09/24/18 09/25/18 09/25/18 23:59 07:59 15:59 Intake Total 1100 / 1100 1000 / 1000 600 / 600 Output Total 675 / 675 1250 / 1250 350 / 350 Balance 425 / 425 -250 / -250 250 / 250 Intake: IV Fluids 1000 / 1000 1000 / 1000 KCl 20 mEq in 0.9% Sodium 1000 / 1000 1000 / 1000 Chloride 20 meq In 1,000 ml @ 100 mls/hr IVC .Q10H [facility] Rx#: [id number] Oral 100 / 100 600 / 600 Output: Urine 675 / 675 1250 / 1250 350 / 350 Other: Meal Breakfast Percent of Meal Consumed 100% Weight 87.8 kg Patient Weight 09/25/18 23:59 Weight 87.8 kg - Labs 11/17/18 04:24 09/25/18 04:24 Diabetes panel 09/25/18 Range/Units 04:24 Sodium 141 (136-145) mEq/L Potassium 3.7 (3.5-5.1) mEq/L Chloride 114 H (98-107) mEq/L Carbon Dioxide 19 L (23-29) mEq/L BUN 8 (8-23) mg/dL Creatinine 0.50 L (0.70-1.30) mg/dL Glucose 84 (70-105) mg/dL Calcium 7.4 L (8.6-10.3) mg/dL AST 21 (13-39) Units/L ALT 13 (7-52) Units/L Alkaline Phosphatase 47 (34-104) Units/L Albumin 3.2 L (3.5-5.7) g/dL Calcium panel 09/25/18 Range/Units 04:24 Calcium 7.4 L (8.6-10.3) mg/dL Phosphorus 1.3 L (2.7-4.5) mg/dL Albumin 3.2 L (3.5-5.7) g/dL Pituitary panel 09/25/18 Range/Units 04:24 Sodium 141 (136-145) mEq/L Potassium 3.7 (3.5-5.1) mEq/L Chloride 114 H (98-107) mEq/L Carbon Dioxide 19 L (23-29) mEq/L BUN 8 (8-23) mg/dL Creatinine 0.50 L (0.70-1.30) mg/dL Glucose 84 (70-105) mg/dL Calcium 7.4 L (8.6-10.3) mg/dL Adrenal panel 09/25/18 Range/Units 04:24 Sodium 141 (136-145) mEq/L Potassium 3.7 (3.5-5.1) mEq/L Chloride 114 H (98-107) mEq/L Carbon Dioxide 19 L (23-29) mEq/L BUN 8 (8-23) mg/dL Creatinine 0.50 L (0.70-1.30) mg/dL Glucose 84 (70-105) mg/dL Calcium 7.4 L (8.6-10.3) mg/dL Total Bilirubin 0.5 (0.3-1.0) mg/dL AST 21 (13-39) Units/L ALT 13 (7-52) Units/L Alkaline Phosphatase 47 (34-104) Units/L Albumin 3.2 L (3.5-5.7) g/dL Consult Discharge Plan - Plan Referrals: Una Pascal, PRIMO [Primary Care Provider] -
[2018-09-25 12:49] LABS: Hematocrit 37.8 % (37.5-50.1); Hemoglobin 12.9 g/dL (12.9-16.9)
[2018-09-25 17:30] LABS: Hematocrit 38.4 % (37.5-50.1); Hemoglobin 13.3 g/dL (12.9-16.9)
[2018-09-25] MEDS: Enzalutamide [Xtandi] 80 MG PO SCH (18:36)
[2018-09-25] MEDS ORDERED: Acetaminophen 325 MG TABLET PO PRN (18:40)
[2018-09-25] MEDS ORDERED: Naloxone 0.4 MG/ML INJ IVP PRN (18:40)
[2018-09-25] MEDS ORDERED: Saline Nasal Spray 44 ML BOTTLE NS PRN (18:40)
[2018-09-25] MEDS ORDERED: Gabapentin 300 MG CAPSULE PO SCH (21:00)
[2018-09-26 06:55] LABS: Basophils # 0.1 K/mcL (0.0-0.2); Basophils % 0.7 %; Eosinophils # 0.3 K/mcL (0.0-0.6); Eosinophils % 4.3 %; Hematocrit 36.8 % (37.5-50.1); Hemoglobin 12.8 g/dL (12.9-16.9); Immature Granulocytes % 0.4 % (0-4); Lymphocytes # 1.6 K/mcL (0.6-4.6); Lymphocytes % 21.7 %; Mean Corpuscular HGB Conc 34.8 g/dL (31.6-35.5); Mean Corpuscular Hemoglobin 30.6 pg (28.0-33.3); Mean Platelet Volume 10.9 fL (9.4-12.4); Monocytes # 0.7 K/mcL (0.0-1.3); Monocytes % 10.4 %; Neutrophils # 4.5 K/mcL (1.6-8.9); Platelet Count 223 K/mcL (140-400); Red Blood Count 4.18 M/mcL (4.19-5.50); Red Cell Distribution Width 14.5 % (11.5-14.5); Segmented Neutrophils % 62.5 %
[2018-09-26 07:17] LABS: BUN/Creatinine Ratio 13 (6-26); Blood Urea Nitrogen 7 mg/dL (8-23); Calcium 8.3 mg/dL (8.6-10.3); Carbon Dioxide 19 mEq/L (23-29); Chloride 112 mEq/L (98-107); Glucose 105 mg/dL (70-105); Osmolality,Calculated 290 (280-300); Potassium 3.5 mEq/L (3.5-5.1); Sodium 141 mEq/L (136-145); eGFR For Non-African Americans > 60 (> 60)
--- NOTE | 2018-09-26 08:44 | Electrocardiograph Report ---
[address] [place], [place] [address] Test Date: 2018-09-23 Pat Name: Nas Garcia Department: [id number] Room: 2NE21 Gender: M [employer] Tender: : 1935 Requested By: Francisco Barnes Order Number: [id number] Reading MD: Dana Hdz Measurements Intervals [place] Rate: 64 P: [place]: QRS: 27 QRSD: 102 T: 45 QT: 438 QTc: 452 Interpretive Statements Atrial fibrillation Abnormal R-wave progression, early transition Electronically Signed On 09-26-2018 8:43:31 EST by Dana Hdz
--- NOTE | 2018-09-26 08:49 | Electrocardiograph Report ---
[address] [place], [place] [address] Test Date: 2018-09-23 Pat Name: Nas Garcia Department: 112 Room: 2NE21 Gender: M Ict Managers: ART : 1935 Requested By: Margot Bashir Order Number: [id number] Reading MD: Dana Hdz Measurements Intervals [place] Rate: 72 P: [place]: 0 QRS: -14 QRSD: 73 T: 26 QT: 393 QTc: 418 Interpretive Statements ATRIAL FIBRILLATION INFERIOR MYOCARDIAL INFARCTION, PROBABLY OLD Electronically Signed On 09-26-2018 8:47:41 EST by Dana Hdz
[2018-09-26] MEDS ORDERED: Furosemide 20 MG/2 ML VIAL IVP SCH (09:00)
[2018-09-26] MEDS ORDERED: Isosorbide MONOnitrate (24 HR) 30 MG TAB.ER.24H PO SCH (09:00)
[2018-09-26] MEDS ORDERED: Pantoprazole 40 MG VIAL IVP SCH (09:00)
[2018-09-26 11:39] VITALS: BP 98/59
--- NOTE | 2018-09-26 12:21 | General Surgery Progress Note ---
Date of Encounter: 09/26/18 Time of Encounter: 12:14 Subjective Patient reports: no new complaints Narrative: General Surgery - GIB patient feeling well, voicing no complaints he is not aware of any persistent or recurrent GI bleeding Afeb- hemodynamically stable. Tachycardic this AM to 114, currently 83 BPM Abd: soft, nontender. Tolerating full liquid diet Hgb 12.8 The patient does not wish to consider colonoscopy at this time. He is asking about discharge home Recommendations regular diet discharge home when medically stable suggest patient see his PCP to determine whether to pursue further intervention / colonoscopy Objective Vital Signs - Last 8 Hours Temp Pulse Resp BP Pulse Ox 09/26/18 11:32 97.4 F L 83 20 98/59 98 09/26/18 07:14 98.2 F 114 19 155/88 95 09/26/18 04:22 97.8 F 86 14 137/78 97 Intake and Output 09/25/18 09/26/18 09/26/18 23:59 07:59 15:59 Intake Total 480 / 480 240 / 240 360 / 360 Output Total 350 / 350 950 / 950 Balance 130 / 130 -710 / -710 360 / 360 Intake: Oral 480 / 480 240 / 240 360 / 360 Output: Urine 350 / 350 950 / 950 Other: Meal Dinner Breakfast Percent of Meal Consumed 100% Stool Size Small Stool Consistency soft Stool Color Brown Bright Red Blood # Voids 0 # Bowel Movements 1 Weight 88.4 kg - Labs 09/26/18 06:26 09/26/18 06:26 Diabetes panel 09/26/18 Range/Units 06:26 Sodium 141 (136-145) mEq/L Potassium 3.5 (3.5-5.1) mEq/L Chloride 112 H (98-107) mEq/L Carbon Dioxide 19 L (23-29) mEq/L BUN 7 L (8-23) mg/dL Creatinine 0.52 L (0.70-1.30) mg/dL Glucose 105 (70-105) mg/dL Calcium 8.3 L (8.6-10.3) mg/dL Calcium panel 09/26/18 Range/Units 06:26 Calcium 8.3 L (8.6-10.3) mg/dL Pituitary panel 09/26/18 Range/Units 06:26 Sodium 141 (136-145) mEq/L Potassium 3.5 (3.5-5.1) mEq/L Chloride 112 H (98-107) mEq/L Carbon Dioxide 19 L (23-29) mEq/L BUN 7 L (8-23) mg/dL Creatinine 0.52 L (0.70-1.30) mg/dL Glucose 105 (70-105) mg/dL Calcium 8.3 L (8.6-10.3) mg/dL Adrenal panel 09/26/18 Range/Units 06:26 Sodium 141 (136-145) mEq/L Potassium 3.5 (3.5-5.1) mEq/L Chloride 112 H (98-107) mEq/L Carbon Dioxide 19 L (23-29) mEq/L BUN 7 L (8-23) mg/dL Creatinine 0.52 L (0.70-1.30) mg/dL Glucose 105 (70-105) mg/dL Calcium 8.3 L (8.6-10.3) mg/dL Consult Discharge Plan - Plan Referrals: Una Pascal, C[facility]GER [Primary Care Provider] -
--- NOTE | 2018-09-26 13:10 | Discharge Summary ---
- NOTES TO OUTPATIENT PROVIDER Notes to Outpatient Provider: Follow-up with your PCP and discuss about colonoscopy. Orders not resulted at time of discharge: Pending orders 09/23/18 19:06 Red Blood Cells [BBK] Stat Type and Screen [BBK] Stat 09/23/18 20:51 Culture,Blood [BC] Stat Date of Encounter: 09/26/18 Time of Encounter: 13:07 - Discharge Diagnosis (1) Gastrointestinal bleeding Priority: Primary Status: Resolved Qualifiers: GI bleed type/associated pathology: anorectal hemorrhage Qualified Code(s): K62.5 - Hemorrhage of anus and rectum (2) Shock Priority: Primary Status: Resolved Assessment and Plan: Hypovolemic shock due to GI bleed. (3) Metastatic adenocarcinoma to prostate Priority: Secondary Status: Chronic (4) Lactic acidosis Priority: Secondary Status: Acute (5) DVT prophylaxis Priority: Secondary Status: Acute Hospital course: Mr. Garcia is a 83 year old male past medical history atrial fibrillation, cancer (prostate), coronary artery disease, CVA, hypertension. Patient presented to the hospital due to gross blood present rectum. Admitted to the critical care unit due to hypovolemic shock secondary to GI bleed possible due to radiation proctitis vs diverticular bleed. Patient was successfully resuscitated, with IV fluid and packed RBCs, transfuse 2 units. As part of the workup CT abdomen and pelvis was done: IMPRESSION: 1. At the level of prostate gland there is an area of soft tissue which is regular marginated and much smaller comparing to the prostate gland 06/04/2011, presumably reflecting changes related to prior treatment. Local recurrence of prostate malignancy is a consideration for this appearance as well. Correlate with clinical history. No change comparing with CT earlier this year. 2. Air is noted within urinary bladder, a nonspecific finding; correlate with recent instrumentation. 3. Diverticulosis coli without CT evidence of acute diverticulitis. Surgery was consulted and Patient underwent EGD: Normal oropharynx. No gross lesion in the esophagus. 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 Patient refused a colonoscopy. Urology was consulted due to hematuria most likely due to potentially from recurrent prostate cancer growth in the urethra/bladder. Recommended outpatient cystoscopy. - Time Spent with Patient Total time spent providing and/or coordinating discharge services: Greater than 30 minutes (40) - Discharge Medications Home Medications: Aspirin Enteric Coated [Aspirin EC] 81 mg PO DAILY 01/02/17 [History] Gabapentin [Neurontin] 600 mg PO HS 01/02/17 [History] Gemfibrozil [Lopid] 600 mg PO DAILY 01/02/17 [History] Isosorbide MONOnitrate (24 HR) [Imdur] 30 mg PO DAILY 01/02/17 [History] Ondansetron ODT [Zofran ODT] 4 mg SL Q6HR PRN #30 tab.rapdis 11/11/17 [Rx] Calcium Carbonate/Vitamin D3 [Calcium 600 + Vit D Tablet] 1 each PO DAILY 12/24/17 [History] Vitamin E Acid Succinate [Vitamin E] 400 units PO DAILY 12/24/17 [History] Metoprolol [Lopressor] 25 mg PO BID 03/31/18 [History] Enzalutamide [Xtandi] 80 mg PO DAILY #120 capsule 09/15/18 [Rx] predniSONE [PredniSONE] 5 mg PO BID #60 tablet 09/15/18 [Rx] Amlodipine Besylate 10 mg PO DAILY 09/23/18 [History] Esomeprazole Magnesium [Nexium] 20 mg PO DAILY 09/23/18 [History] Furosemide [Lasix] 20 mg PO 2XW PRN 09/24/18 [History] Lisinopril 2.5 mg PO DAILY 09/24/18 [History] Allergies/Adverse Reactions: Allergy/AdvReac Type Severity Reaction Status Date / Time No Known Allergies Allergy Verified 06/23/18 10:30 Date of admission: 09/23/18 20:05 Primary care physician: Una Pascal CNP Consults: 09/22/18 17:25 Consult to Gastroenterology [CONS] Routine Consulting Provider: Jabari Holm Reason for Consult: GI Bleed Call Completed: Yes 09/23/18 21:55 Consult to Pulmonology [CONS] Routine Consulting Provider: [facility] Veronika Reason for Consult: CRITICAL CARE Time Notified: 21:56 Call Completed: Yes 09/23/18 23:27 Consult to Urology [CONS] Routine Consulting Provider: Urology Veronika Reason for Consult: hematuria; prostate cancer Call Completed: No 09/26/18 12:26 Consult to Occupational Therapy [CONS] Routine Comment: Evaluate, develop and implement POC Reason for Consult: Generalized weakness Does patient have active BEDREST order?: No Is patient medically & hemodynamically stable?: Yes Consult to Physical Therapy [CONS] Routine Comment: Evaluate, develop and implement POC Reason for Consult: Generalized weakness Does patient have active BEDREST order?: No Is patient medically & hemodynamically stable?: No - Constitutional Vitals: Temp Pulse Resp BP Pulse Ox 97.4 F L 83 20 98/59 98 09/26/18 11:32 09/26/18 11:32 09/26/18 11:32 09/26/18 11:32 09/26/18 11:32 General appearance: Present: cooperative, A&O X 3, pleasant, answers questions appropriately Exam: Vitals: Reviewed General: Alert and oriented x4. In no acute distress. Skin: Normal color, no rash, no lesions. HEENT: EOM, pupils equal, round and reactive. Cardiovascular: RRR, Normal S1 & S2, no rubs, murmurs or gallops. Lungs: Clear to auscultation bilaterally, no wheezes or crackles. Abdomen: Obese, Soft, non-tender, no rigidity. Extremities: No deformity, no edema or tenderness, no joint swelling or clubbing. Neurological: Normal cognition and motor skills. Rest of the physical exam is non contributory - Patient Status Disposition: Home Health Service Condition: Good Functional capacity at discharge: independent ambulation Overall status at discharge: patient is back to baseline - Discharge Instructions Instructions: Atrial Fibrillation (DC), Chronic Hypertension (DC) Follow Up With: Una Pascal CNP [Primary Care Provider] - - Diet and Activity Activity: as per physical therapy Diet: low salt diet
[2018-09-26] MEDS ORDERED: Enzalutamide [Xtandi] 80 MG PO SCH (18:00)
== END 2018-09-26 19:18 | disposition home health service (06) | DRG 380 ==
LOC: EMEROOARM 18:30 → ICNU 20:05 → SUATTDRO 20:05 → ICNU 20:39 → 2NENU 09-25 15:49
PROVIDERS: ADMIT Pediatrics; ATTEND Internal Medicine

== ENCOUNTER 2020-06-25 21:26 | Observation (INO) ==
[2020-06-25] MEDS ORDERED: Pantoprazole 40 MG VIAL IVP ONE (21:58)
[2020-06-25 22:15] LABS: Basophils % 0.5 %; Eosinophils # 0.1 K/mcL (0.0-0.6); Hematocrit 41.4 % (37.5-50.1); Hemoglobin 13.5 g/dL (12.9-16.9); Immature Granulocytes % 0.5 % (0-4); Lymphocytes # 1.3 K/mcL (0.6-4.6); Lymphocytes % 15.4 %; Mean Corpuscular HGB Conc 32.6 g/dL (31.6-35.5); Mean Corpuscular Hemoglobin 30.1 pg (28.0-33.3); Mean Corpuscular Volume 92.4 fL (83.0-100.0); Mean Platelet Volume 11.2 fL (9.4-12.4); Monocytes # 0.6 K/mcL (0.0-1.3); Monocytes % 7.3 %; Neutrophils # 6.5 K/mcL (1.6-8.9); Platelet Count 239 K/mcL (140-400); Red Blood Count 4.48 M/mcL (4.19-5.50); Red Cell Distribution Width 14.9 % (11.5-14.5); Segmented Neutrophils % 75.3 %; White Blood Count 8.7 K/mcL (4.3-11.1)
[2020-06-25 22:19] LABS: INR 0.9; Prothrombin Time 10.7 Seconds (9.4-12.1)
[2020-06-25 22:22] LABS: Activated Partial Thrombo Time 30.8 Seconds (26.0-36.0)
[2020-06-25 22:32] LABS: Alanine Aminotransferase 10 Units/L (7-52); Albumin 3.9 g/dL (3.5-5.7); Albumin/Globulin Ratio 1.2 (1.1-2.2); Alkaline Phosphatase 63 Units/L (34-104); Aspartate Amino Transferase 12 Units/L (13-39); BUN/Creatinine Ratio 16 (6-26); Bilirubin,Total 0.3 mg/dL (0.3-1.0); Blood Urea Nitrogen 14 mg/dL (8-23); Calcium 9.4 mg/dL (8.6-10.3); Carbon Dioxide 21 mEq/L (23-29); Chloride 102 mEq/L (98-107); Globulin 3.3 g/dL (2.4-3.5); Glucose 119 mg/dL (70-105); Osmolality,Calculated 284 (280-300); Potassium 3.8 mEq/L (3.5-5.1); Sodium 136 mEq/L (136-145); Total Protein 7.2 g/dL (6.4-8.9); Troponin I < 0.03 ng/mL (< 0.04); eGFR For African Americans > 60 (> 60); eGFR For Non-African Americans > 60 (> 60)
[2020-06-25] MEDS ORDERED: Isovue-370 500 ML BOTTLE IVP ONE (22:54)
[2020-06-26] MEDS ORDERED: Heparin 1,000 UNITS/500 mL 500 ML ONE (01:29)
[2020-06-26] MEDS ORDERED: 0.9 % Sodium Chloride 500 ML ONE (01:29)
[2020-06-26] MEDS ORDERED: Lidocaine/EPI 1:100k 1% 50 ML VIAL ONE (01:29)
[2020-06-26] MEDS ORDERED: 0.9 % Sodium Chloride 1,000 ML ONE (01:53)
[2020-06-26] MEDS ORDERED: Isovue-300 50ML VIAL IVP ONE (02:07)
[2020-06-26] MEDS ORDERED: *HR* Promethazine 25 MG/ML VIAL IVP PRN (02:31)
[2020-06-26] MEDS ORDERED: Naloxone 0.4 MG/ML INJ IVP PRN (02:31)
[2020-06-26] MEDS: 0.9 % Sodium Chloride 1,000 ML IVC SCH ×2 (03:33→16:24)
[2020-06-26 06:25] LABS: Prothrombin Time 11.2 Seconds (9.4-12.1)
[2020-06-26 06:26] LABS: Basophils % 0.5 %; Eosinophils # 0.1 K/mcL (0.0-0.6); Immature Granulocytes % 0.6 % (0-4); Lymphocytes # 1.5 K/mcL (0.6-4.6); Lymphocytes % 24.3 %; Mean Corpuscular HGB Conc 31.6 g/dL (31.6-35.5); Mean Corpuscular Hemoglobin 28.8 pg (28.0-33.3); Mean Corpuscular Volume 91.1 fL (83.0-100.0); Mean Platelet Volume 11.2 fL (9.4-12.4); Monocytes # 0.5 K/mcL (0.0-1.3); Monocytes % 8.4 %; Neutrophils # 4.1 K/mcL (1.6-8.9); Platelet Count 224 K/mcL (140-400); Red Blood Count 4.06 M/mcL (4.19-5.50); Segmented Neutrophils % 65.2 %; White Blood Count 6.3 K/mcL (4.3-11.1)
[2020-06-26 06:28] LABS: BUN/Creatinine Ratio 16 (6-26); Blood Urea Nitrogen 12 mg/dL (8-23); Calcium 8.8 mg/dL (8.6-10.3); Carbon Dioxide 25 mEq/L (23-29); Chloride 107 mEq/L (98-107); Glucose 94 mg/dL (70-105); Magnesium 1.8 mg/dL (1.6-2.6); Osmolality,Calculated 288 (280-300); Phosphorous 3.5 mg/dL (2.7-4.5); Potassium 3.9 mEq/L (3.5-5.1); Sodium 139 mEq/L (136-145); eGFR For African Americans > 60 (> 60); eGFR For Non-African Americans > 60 (> 60)
[2020-06-26 06:30] LABS: Bilirubin,Urine Negative (Negative); Blood,Urine Moderate (Negative); Clarity,Urine Clear (Clear); Color,Urine Colorless (Yellow); Glucose,Urine (UA) Normal (Normal); Ketones,Urine Negative (Negative); Leukocyte Esterase,Urine Negative (Negative); Mucus,Urine Few per lpf (None-Few); Nitrite,Urine Negative (Negative); Protein,Urine Negative (Neg-Trace); Specific Gravity,Urine > 1.030 (1.010-1.025); Urobilinogen,Urine Normal (Normal); WBC,Urine 0-3 per hpf (0-3)
[2020-06-26 06:31] LABS: Hemoglobin 11.7 g/dL (12.9-16.9)
[2020-06-26] MEDS ORDERED: Aspirin Enteric Coated 81 MG Tablet PO SCH (10:15)
[2020-06-26] MEDS: Gabapentin 300 MG CAPSULE PO SCH ×2 (11:24→19:48)
[2020-06-26] MEDS: Isosorbide MONOnitrate (24 HR) 30 MG TAB.ER.24H PO SCH (11:24)
[2020-06-26] MEDS: predniSONE 5 MG TABLET PO SCH ×2 (11:25→19:49)
[2020-06-26] MEDS: lisinopriL 5 MG TABLET PO SCH (11:25)
[2020-06-26 18:19] LABS: Basophils % 0.6 %; Eosinophils # 0.1 K/mcL (0.0-0.6); Eosinophils % 1.4 %; Hematocrit 39.5 % (37.5-50.1); Hemoglobin 12.6 g/dL (12.9-16.9); Immature Granulocytes % 0.7 % (0-4); Lymphocytes # 1.3 K/mcL (0.6-4.6); Lymphocytes % 18.6 %; Mean Corpuscular HGB Conc 31.9 g/dL (31.6-35.5); Mean Corpuscular Hemoglobin 29.2 pg (28.0-33.3); Mean Corpuscular Volume 91.4 fL (83.0-100.0); Mean Platelet Volume 11.2 fL (9.4-12.4); Monocytes # 0.6 K/mcL (0.0-1.3); Monocytes % 7.9 %; Platelet Count 234 K/mcL (140-400); Red Blood Count 4.32 M/mcL (4.19-5.50); Segmented Neutrophils % 70.8 %; White Blood Count 7.1 K/mcL (4.3-11.1)
[2020-06-27 05:12] LABS: Basophils % 0.4 %; Eosinophils # 0.1 K/mcL (0.0-0.6); Eosinophils % 1.8 %; Hematocrit 35.4 % (37.5-50.1); Hemoglobin 11.4 g/dL (12.9-16.9); Immature Granulocytes % 0.4 % (0-4); Lymphocytes # 1.2 K/mcL (0.6-4.6); Lymphocytes % 17.2 %; Mean Corpuscular HGB Conc 32.2 g/dL (31.6-35.5); Mean Corpuscular Hemoglobin 29.2 pg (28.0-33.3); Mean Corpuscular Volume 90.5 fL (83.0-100.0); Mean Platelet Volume 10.9 fL (9.4-12.4); Monocytes # 0.6 K/mcL (0.0-1.3); Monocytes % 9.3 %; Neutrophils # 4.9 K/mcL (1.6-8.9); Platelet Count 202 K/mcL (140-400); Red Blood Count 3.91 M/mcL (4.19-5.50); Red Cell Distribution Width 14.9 % (11.5-14.5); Segmented Neutrophils % 70.9 %; White Blood Count 6.9 K/mcL (4.3-11.1)
[2020-06-27] MEDS: Gabapentin 300 MG CAPSULE PO SCH (07:59)
[2020-06-27] MEDS: lisinopriL 5 MG TABLET PO SCH (07:59)
[2020-06-27] MEDS: predniSONE 5 MG TABLET PO SCH (08:00)
[2020-06-27] MEDS: Isosorbide MONOnitrate (24 HR) 30 MG TAB.ER.24H PO SCH (08:00)
[2020-06-27] MEDS ORDERED: Cholecalciferol (D-3) 1,000 UNIT (25MCG) TABLET PO SCH (09:00)
[2020-06-27] MEDS ORDERED: gemfibroziL 600 MG TABLET PO SCH (09:00)
[2020-06-27] MEDS ORDERED: amLODIPine 5 MG TABLET PO SCH (09:00)
[2020-06-27 11:05] VITALS: BP 110/62
== END 2020-06-27 14:34 | disposition home or self-care (01) ==
LOC: 3BNU 21:26 → EMEROOARM 21:26 → SUATTDRO 06-26 01:54 → 3BNU 06-26 02:03
PROVIDERS: ADMIT Student in an Organized Health Care Education/Training Program; ATTEND Internal Medicine